=== PATIENT | male | born 1960 | race Caucasian/White ===

== ENCOUNTER 2019-03-04 00:20 | Outpatient (CLI) | payer OTHER | END 2019-03-04 00:21 | disposition critical access hospital (66) | LOC: EMS 00:20 | PROVIDERS: ATTEND Surgery | DX: S99.922A Unspecified injury of left foot, initial encounter (principal); R00.0 Tachycardia, unspecified; R73.09 Other abnormal glucose; W18.39XA Other fall on same level, initial encounter; Y92.59 Other trade areas as the place of occurrence of the external cause | CPT/HCPCS: A0425; A0427 ==

== ENCOUNTER 2019-03-04 00:48 | Inpatient (IN) | payer OTHER ==
[2019-03-04] MEDS ORDERED: INSULIN REGULAR HUMAN 100 UNIT/1 ML 10 ML MDV IVP STA (01:21)
[2019-03-04] MEDS ORDERED: SODIUM CHLORIDE 0.9% 1,000 ML IV ONE ×2 (01:21→03:46)
--- NOTE | 2019-03-04 01:23 | ED Physician Documentation ---
History of Present Illness - Stated complaint Stated Complaint: GLF - Chief complaint Chief Complaint: General - History obtained from History obtained from: Patient, EMS - History of Present Illness Timing: Today - Additonal information Additional information: 58-year-old diabetic male reports that he fell in his hotel room this morning at about 6 AM and was unable to get to the phone until this evening. He spent all of the time crawling back to the bed. He is brought to the hospital by medics who notes some swelling to the dorsum of his left foot and a heart rate of 157. The patient is a poor historian and appears dry and with altered mental status. Review of Systems Unable to obtain: Confused PD PAST MEDICAL HISTORY - Past Medical History Past Medical History: Yes Cardiovascular: Hypertension Respiratory: None Neuro: None Endocrine/Autoimmune: Type 2 diabetes GI: None : None HEENT: None Psych: None Musculoskeletal: Other Derm: None Other Past Medical History: LUPUS - Past Surgical History Past Surgical History: Yes - Present Medications Home Medications: Ambulatory Orders Medication Instructions Recorded Confirmed Colchicine 0.6 mg PO DAILY 03/04/19 03/04/19 Febuxostat 80 mg PO DAILY 03/04/19 03/04/19 Furosemide [Lasix] 80 mg PO DAILY 03/04/19 03/04/19 Insulin NPH Human Isophane 25 units SQ AC 03/04/19 03/04/19 [Humulin N Kwikpen] Losartan/Hydrochlorothiazide 1 tab PO DAILY 03/04/19 03/04/19 [Losartan-Hctz 100-25 mg Tab] Mycophenolate Mofetil 1,000 mg PO BID 03/04/19 03/04/19 Nifedipine [Nifedipine ER] 30 mg PO DAILY 03/04/19 03/04/19 carvediloL [Carvedilol] 25 mg PO BID 03/04/19 03/04/19 - Allergies Allergies/Adverse Reactions: Allergies Allergy/AdvReac Type Severity Reaction Status Date / Time No Known Drug Allergies Allergy Verified 03/04/19 01:22 - Social History Does the pt smoke?: No Smoking Status: Never smoker Does the pt drink ETOH?: No Does the pt have substance abuse?: No - Immunizations Immunizations are current?: No Immunizations: TDAP >10years/unknown - POLST Patient has POLST: No PD ED PE NORMAL - Vitals Vital signs reviewed: Yes (tachy and hypertensive ) - General General: Other (morbidly obese 58 y/o male with parched mucous membranes and diffuse skin changes with a foul odor answers questions with some delay in execution of motor commands. ) - HEENT HEENT: Atraumatic, PERRL, EOMI - Neck Neck: Supple, no meningeal sign - Cardiac Cardiac: No murmur, Other (tachy ) - Respiratory Respiratory: No respiratory distress, Clear bilaterally - Abdomen Abdomen: Soft, Non tender, Other (obese) - Back Back: No CVA TTP, No spinal TTP - Derm Derm: Normal color, Warm and dry, Other (There is inflamation to the skin there is an axillary abcess that is spontaneously draining in the right axilla and without tenderness or mass. ) - Extremities Extremities: No edema, Other (There is tenderness and swelling to the dorsum of the left foot. ) - Neuro Neuro: hay stacker 2-12 intact, No motor deficit, No sensory deficit, Other (speech is dysarthric secondary to dry mucous membranes ) Eye Opening: Spontaneous Motor: Obeys Commands Verbal: Oriented GCS Score: 15 - Psych Psych: Normal mood, Normal affect Results - Vitals Vitals: Vital Signs - 24 hr 03/04/19 03/04/19 03/04/19 00:40 01:00 02:00 Temperature 36.5 C Heart Rate 154 H 154 H 166 H Respiratory 22 18 28 H Rate Blood Pressure 114/92 H 129/90 H 100/71 O2 Saturation 97 92 93 03/04/19 03/04/19 03/04/19 02:30 02:46 02:50 Temperature Heart Rate 164 H 162 H 156 H Respiratory 20 20 20 Rate Blood Pressure 115/74 95/77 94/72 O2 Saturation 96 94 94 03/04/19 02:55 Temperature Heart Rate 108 H Respiratory 22 Rate Blood Pressure 108/78 O2 Saturation 92 Oxygen O2 Source Room air - EKG (time done) 0057 Rate: Rate (enter#) (156) Rhythm: LAE, Other (atrial tachycardia unifocal) Ischemia: Other (ST depression and lateral T wave inversion consistent with strain pattern. ) Compare to prior EKG: Old EKG unavailable Computer interpretation: Disagree with computer (I do not see R waves in V1 to consider posterior infarct. ) - Labs Labs: Laboratory Tests 03/04/19 03/04/19 03/04/19 01:25 01:25 01:25 WBC 12.8 H RBC 5.92 Hgb 17.4 Hct 57.3 H MCV 96.8 H MCH 29.4 MCHC 30.4 L RDW 15.4 H Plt Count 278 MPV 10.7 Neut # (Auto) 10.5 H Lymph # (Auto) 1.3 L [place] # (Auto) 0.8 Eos # (Auto) 0.0 Baso # (Auto) 0.1 Absolute Nucleated RBC 0.00 Nucleated RBC % 0.0 VBG pH VBG pCO2 VBG pO2 VBG HCO3 VBG Total CO2 VBG O2 Saturation VBG Base Excess Sodium 137 Potassium 5.1 H Chloride 85 L Carbon Dioxide 23 Anion Gap 29.0 H BUN 96 H* Creatinine 3.7 H Estimated GFR (MDRD) 17 L Glucose 1107 H* Lactic Acid 3.3 H* Calcium 9.0 Total Bilirubin 2.0 H AST 25 ALT 28 Alkaline Phosphatase 110 Total Protein 7.7 Albumin 3.7 Globulin 4.0 Albumin/Globulin Ratio 0.9 L Lipase 56 H Ethyl Alcohol < 5.0 Serum Ketones SMALL H 03/04/19 01:25 WBC RBC Hgb Hct MCV MCH MCHC RDW Plt Count MPV Neut # (Auto) Lymph # (Auto) [place] # (Auto) Eos # (Auto) Baso # (Auto) Absolute Nucleated RBC Nucleated RBC % VBG pH 7.454 H VBG pCO2 28.3 L VBG pO2 113.7 H VBG HCO3 19.4 L VBG Total CO2 20.3 L VBG O2 Saturation 98.2 H VBG Base Excess -2.6 L Sodium Potassium Chloride Carbon Dioxide Anion Gap BUN Creatinine Estimated GFR (MDRD) Glucose Lactic Acid Calcium Total Bilirubin AST ALT Alkaline Phosphatase Total Protein Albumin Globulin Albumin/Globulin Ratio Lipase Ethyl Alcohol Serum Ketones - Rads (name of study) chest Radiology: Prelim report reviewed (Impression: Normal single view chest), EMP read indepedently, See rad report Foot Radiology: Prelim report reviewed (Impression: Nondisplaced transverse fracture through the base of the third metatarsal at least. No other definitive fracture seen but CT may be useful for fractures and this Lisfranc region as often difficult to see.), EMP read indepedently, See rad report Procedures - Splint (location) left foot Splint applied by: Tech Type of splint: Fiberglass, Posterior Other: Patient tolerated well, No complications, Neurovascular intact, Good alignment PD MEDICAL DECISION MAKING - ED course Complexity details: reviewed results, re-evaluated patient, considered differential, d/w patient ED course: 58-year-old male visiting from [place] has type 2 diabetes and presents to the emergency department today with hyper glycemia and ketosis. He has markedly elevated glucose at over 1100 and a heart rate of 157. He is dehydrated and he is administered a liter of saline an insulin drip is started at 6 units per hour and a bolus of 10 units is given. He remains tachycardic despite the volume and he is administered IV cardiazem with conversion and a rate of 87. Dr. Ly is consulted in the case for admission and he graciously agrees to care for the patient in the hospital. The patient is able to provide more history as his hydration improves and he is able to tell me he was in a hospital in [facility] 3 months ago for LE cellulitis. He also indicates he had a stroke more than 10 years ago and recovered. - Critical Care Time(min): 40 Time Includes: Direct patient care, Review records, Reassess patient, Document care, Coordinate care, Medical consult Data interpretation: Labs, Pulse ox, ABG, CXR Procedures excluded from critical care time: EKG Departure - Departure Disposition: 66 [facility] DC/Xfer Clinical Impression: Diabetes mellitus with ketosis, Dehydration Altered mental status Qualifiers: Altered mental status type: disorientation Qualified Code(s): R41.0 - Disorientation, unspecified Foot fracture, left Qualifiers: Encounter type: initial encounter Fracture type: closed Qualified Code(s): S92.902A - Unspecified fracture of left foot, initial encounter for closed fracture Condition: Critical Discharge Date/Time: 03/04/19 04:55
[2019-03-04] MEDS: INSULIN REGULAR HUMAN 100 UNIT in SODIUM CHLORIDE 0.9% 100ML 99 ML IV STA (01:49)
[2019-03-04 01:54] LABS: VBG PCO2 28.3 mmHg (41-51); VBG PH 7.454 (7.31-7.41); VBG PO2 113.7 mmHg (25-47); VBG TOTAL CO2 20.3 mmol/L (24-29)
[2019-03-04 01:55] LABS: VBG BASE EXCESS -2.6 mmol/L (-2 - +2)
[2019-03-04 01:56] LABS: BASOPHILS # (AUTO) 0.1 10^3/uL (0.0-0.1); BASOPHILS % (AUTO) 0.4 %; EOSINOPHILS % (AUTO) 0.2 %; HGB - HEMOGLOBIN 17.4 g/dL (14.0-18.0); LYMPHOCYTES # (AUTO) 1.3 10^3/uL (1.5-3.5); LYMPHOCYTES % (AUTO) 10.5 %; MEAN CORPUSCULAR HEMOGLOBIN 29.4 pg (27.0-31.0); MEAN CORPUSCULAR HGB CONC 30.4 g/dL (32.0-36.0); MEAN CORPUSCULAR VOLUME 96.8 fL (80.0-94.0); MEAN PLATELET VOLUME 10.7 fL (7.4-11.4); MONOCYTES # (AUTO) 0.8 10^3/uL (0.0-1.0); MONOCYTES % (AUTO) 6.1 %; NEUTROPHILS # (AUTO) 10.5 10^3/uL (1.5-6.6); NEUTROPHILS % (AUTO) 81.9 %; PLT - PLATELET COUNT 278 10^3/uL (130-450); RED BLOOD COUNT 5.92 10^6/uL (4.70-6.10); RED CELL DISTRIBUTION WIDTH 15.4 % (12.0-15.0); WHITE BLOOD COUNT 12.8 x10^3/uL (4.8-10.8)
[2019-03-04 02:00] LABS: KETONES, SERUM (ACETEST) SMALL (NEGATIVE)
--- NOTE | 2019-03-04 02:09 | XRAY Report ---
Reason: chest pain Procedure Date: 03/04/2019 Accession Number: [id number] / [id number] Procedure: XR - Chest 1 View X-Ray CPT Code: 97093 Final Report FULL RESULT: EXAM: CHEST RADIOGRAPHY EXAM DATE: 03/04/2019 01:39 AM. CLINICAL HISTORY: Chest pain. COMPARISON: None. TECHNIQUE: 1 view. FINDINGS: Lungs/Pleura: No focal opacities evident. No pleural effusion. No pneumothorax. Mediastinum: Within exam limitations, the cardiomediastinal contour is normal. Other: None. IMPRESSION: Normal single view chest. RADIA
[2019-03-04 02:10] LABS: ALBUMIN 3.7 g/dL (3.2-5.5); ALBUMIN/GLOBULIN RATIO 0.9 (1.0-2.2); ALKALINE PHOSPHATASE 110 IU/L (42-121); ALT ALANINE AMINOTRANSFERASE 28 IU/L (10-60); AST ASPARTATE AMINOTRANSFERASE 25 IU/L (10-42); CARBON DIOXIDE - CO2 23 mmol/L (21-32); CHLORIDE 85 mmol/L (101-111); CREATININE 3.7 mg/dL (0.6-1.2); GFR - MDRD 17 (>89); LIPASE 56 U/L (22-51); SODIUM 137 mmol/L (135-145); TOTAL PROTEIN 7.7 g/dL (6.7-8.2)
[2019-03-04 02:12] LABS: BUN - BLOOD UREA NITROGEN 96 mg/dL (6-20)
[2019-03-04 02:13] LABS: GLUCOSE 1107 mg/dL (70-100)
--- NOTE | 2019-03-04 02:18 | XRAY Report ---
Reason: fall dorsal pain Procedure Date: 03/04/2019 Accession Number: [id number] / [id number] Procedure: XR - Foot 3 View LT CPT Code: Final Report FULL RESULT: EXAM: LEFT FOOT RADIOGRAPHY EXAM DATE: 03/04/2019 02:06 AM. CLINICAL HISTORY: Fall, dorsal pain. COMPARISON: None. TECHNIQUE: 3 views. FINDINGS: Bones: Nondisplaced transverse fracture through the base of the third metatarsal. No other definitive fracture seen in the foot. Joints: No definite malalignment. No significant arthritic changes. Soft Tissues: Swelling. IMPRESSION: Nondisplaced transverse fracture through the base of the third metatarsal at least. No other definitive fracture seen but CT may be useful for fractures in this Lisfranc region as often difficult to see. RADIA
[2019-03-04] MEDS ORDERED: diltiaZEM INJ 5 MG/ML VIAL IVP STA (02:40)
[2019-03-04] MEDS ORDERED: ONDANSETRON 4 MG/2 ML VIAL IVP PRN (03:41)
[2019-03-04] MEDS ORDERED: ACETAMINOPHEN 325 MG TABLET PO PRN (03:41)
[2019-03-04] MEDS ORDERED: SODIUM CHLORIDE 0.9% 1,000 ML IV SCH ×2 (04:00→05:12)
--- NOTE | 2019-03-04 04:10 | HISTORY & PHYSICAL EXAMINATION ---
Chief Complaint - Chief Complaint Chief Complaint: Fall History of Present Illness - Admitted From Admitted From:: Home - History Obtained From Records Reviewed: Yes History obtained from: Patient, ER Physician, EMR - History of Present Illness HPI Comment/Other: This is a 58-year-old male with a past medical history significant for type 2 diabetes, chronic kidney disease, lupus on mycophenolate, hypertension, gout who presents today after having a ground-level fall at home. He states he fell the evening of . He reports his left knee gave out and that he injured his left foot. His foot became painful and quite swollen. He had difficult time getting back to bed. He was eventually able to call EMS last night and when they arrived they noticed his left foot was swollen and he was tachycardic in the 150s. The patient states his blood sugar has been elevated these past few days and that the moderate has been reading "high." He states he has been taking his insulin at times but not consistently. He is not able to recall his dose and whether it is short or long-acting insulin. He is not sure why he has been able to take it consistently. He is complaining of increased urination and feeling very dehydrated. He is thirsty at this time. He reports no chest pain, dyspnea, fevers, chills. He reports no prior history of DKA. He is currently visiting from [facility] and has been here since beginning of the month by himself. He states his kidney function at baseline is functioning at approximately 30%. He has have a history of lupus for which he takes mycophenolate. He denies a history of cardiac problems including heart failure and arrhythmias. In the emergency department, he is found to be afebrile, tachycardic in the 150s, normotensive, tachypneic in the low 20s, saturating well on room air. His labs revealed a white count of 12.8 and hemoglobin of 17.4. His serum chemistry revealed a sodium of 137, potassium of 5.1, anion gap of 29, bicarbonate of 23. His BUN is elevated at 96 and Creatinine was 2.7. His glucose was 1107 and had an elevated lactic acid at 3.3. Serum ketones were small. VBG obtained showed a pH 7.45 and a PCO2 of 28.3. His chest x-ray was unremarkable. The x-ray of his left foot reveal a nondisplaced transverse fracture through the base of the third metatarsal. Given these findings, medicine was consulted for admission. I did discuss goals of care with the patient and he would like to be a full code. History - Past Medical History Cardiovascular: reports: Hypertension Respiratory: reports: None Neuro: reports: None Endocrine/Autoimmune: reports: Type 2 diabetes, Systemic lupus erythematosus GI: reports: None : reports: Renal insuffiency HEENT: reports: None Psych: reports: None Musculoskeletal: reports: Gout Derm: reports: None MRSA Hx?: No - Past Surgical History Other past surgical history: He states he has had surgery in the past but he cannot recall what it was at this time. - Family & Social History Family History Comment/Other: He reports a family history of diabetes and hypertension. He is unable to provide more history at the moment given his a ltered mental status. Living arrangement: At home Social History Notes: He lives in [facility] with his partner but he is visiting [facility] on his own. He has been here for 1 month now. He does visit here frequently. 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 He retired approximately 3 years ago. He reports no smoking or alcohol use. - POLST Patient has POLST: No Meds/Allgy - Home Medications Home Medications: Ambulatory Orders Medication Instructions Recorded Confirmed Colchicine 0.6 mg PO DAILY 03/04/19 03/04/19 Febuxostat 80 mg PO DAILY 03/04/19 03/04/19 Furosemide [Lasix] 80 mg PO DAILY 03/04/19 03/04/19 Insulin NPH Human Isophane 25 units SQ AC 03/04/19 03/04/19 [Humulin N Kwikpen] Losartan/Hydrochlorothiazide mg PO DAILY 03/04/19 [Losartan-Hctz 100-25 mg Tab] Mycophenolate Mofetil 1,000 mg PO BID 03/04/19 03/04/19 Nifedipine [Nifedipine ER] 30 mg PO DAILY 03/04/19 03/04/19 carvediloL [Carvedilol] 25 mg PO BID 03/04/19 03/04/19 - Allergies Allergies/Adverse Reactions: Allergies Allergy/AdvReac Type Severity Reaction Status Date / Time No Known Drug Allergies Allergy Verified 03/04/19 01:22 Review of Systems - Constitutional Constitutional: reports: Fatigue, Weakness. denies: Fever, Chills, Poor appetite - Cardiovascular Cariovascular: reports: Edema, Lightheadedness. denies: Chest pain, Exertional dyspnea, Decr. exercise tolerance - Respiratory Respiratory: denies: Cough, SOB at rest, SOB with exertion - Gastrointestinal Gastrointestinal: reports: Nausea. denies: Abdominal pain, Constipation, Diarrhea, Vomiting - Genitourinary Genitourinary: reports: Frequency. denies: Dysuria, Urgency - Musculoskeletal Musculoskeletal: reports: Joint swelling. denies: Muscle weakness - Integumentary Integumentary: denies: Rash - Neurological Neurological: reports: General weakness, Focal weakness, Dizziness, Numbness - Endocrine Endocrine: reports: Polyuria - All Other Systems All Other Systems: reports: Reviewed and negative Prior Level of Functionality: He is independent with ADLs. Exam - Vital Signs Reviewed Vital Signs: Yes Vital Signs: Vital Signs x48h Temp Pulse Resp BP Pulse Ox 03/04/19 03:44 89 30 H 113/85 H 95 03/04/19 02:55 108 H 22 108/78 92 03/04/19 02:50 156 H 20 94/72 94 03/04/19 02:46 162 H 20 95/77 94 03/04/19 02:30 164 H 20 115/74 96 03/04/19 02:00 166 H 28 H 100/71 93 03/04/19 01:00 154 H 18 129/90 H 92 03/04/19 00:40 36.5 C 154 H 22 114/92 H 97 - Physical Exam General Appearance: positive: Alert, Mild distress Eyes Bilateral: positive: Normal inspection, Conjunctivae nml ENT: positive: ENT inspection nml, Dry mucous membranes Neck: positive: Nml inspection Abdomen: positive: Non-tender, Other (Umbilical hernia noted.). negative: No distention, Tenderness, Guarding, Rebound Skin: positive: Warm, Dry Extremities: positive: No pedal edema, Other (There is not pitting edema over the dorsum of the left foot. Tender to palpation over the dorsum. No erythema.) Neurologic/Psychiatric: positive: Oriented x3, Other (No focal motor deficits.). negative: Disoriented to person, Disoriented to place, Disoriented to time, Slurred/abnml speech Conclusion/Plan - Problem List (1) Uncontrolled type 2 DM with hyperosmolar nonketotic hyperglycemia Conclusion/Plan: He presents with a blood glucose greater than 1000 and altered mental status. Although his anion gap is elevated, his bicarbonate is within normal range and his serum ketones are small. His pH is also 7.454. Suspect this is more of a hyperosmolar hyperglycemic state rather than diabetic ketoacidosis. Will continue aggressive IV hydration and start him on IV insulin. Check a serum osmolality. Check electrolytes every 4 hours. N.p.o. except for water. (2) Altered mental status Conclusion/Plan: He was initially quite disoriented and altered upon arrival to the ER but this has since improved. Suspect is likely multifactorial including his hyperglycemia and acute kidney injury causing uremia. Will hold off on CT of the head as he is improving and there are no focal deficits on exam. We will continue with IV hydration. Avoid medications which may cause delirium. Qualifiers: Altered mental status type: disorientation Qualified Code(s): R41.0 - Disorientation, unspecified (3) Increased anion gap metabolic acidosis Conclusion/Plan: This appears to be multifactorial including elevated lactic acid, uremia, and acute kidney injury. Do not suspect DKA is playing a role as his serum ketones are small and his bicarbonate is 23 although prior labs are not available to me and it is unclear what his baseline bicarbonate is. We will continue IV insulin for his hyperglycemia and continue IV hydration. Monitor his renal function. Repeat lactic acid. (4) Acute kidney injury superimposed on chronic kidney disease Conclusion/Plan: His BUN is elevated at 96 and his creatinine at 3.7. He does have baseline renal insufficiency but unclear what his baseline creatinine is. Suspect this injury is prerenal in nature as he appears quite dehydrated. We will continue with IV saline and monitoring renal function. We will obtain a urinalysis to rule out a potentially active sediment as he does have a history of lupus. Hold home Losartan and diuretics. (5) Fracture of metatarsal of left foot, closed Conclusion/Plan: Is a new diagnosis for him. Evident on the x-ray of the left foot. We will keep him nonweightbearing and keep leg elevated. Will use Tylenol as needed for pain control. No NSAIDs due to his renal function. Will apply ice as needed. Will ask orthopedics to evaluate the patient if he is still here on Wednesday when we have orthopedics available once again. Otherwise he will require outpatient follow-up. Qualifiers: Encounter type: initial encounter Metatarsal bone: third Fracture alignment: nondisplaced Qualified Code(s): S92.335A - Nondisplaced fracture of third metatarsal bone, left foot, initial encounter for closed fracture (6) Atrial flutter Conclusion/Plan: Reports no prior history of arrhythmias but his EKG in the ER appears to be atrial flutter. He did receive Cardizem IV with improvement in his heart rate and is now in sinus rhythm. Will trend troponin and monitor on telemetry. Obtain echocardiogram. (7) Hypernatremia Conclusion/Plan: His corrected sodium for his hyperglycemia is 153. We will continue with half normal saline given his hyperglycemia and evidence of dehydration. Will encourage free water intake. Monitor his sodium every 4 hours. (8) Lupus Conclusion/Plan: He is on mycophenolate 1000 mg twice a day. This may potentially be for a history of lupus nephritis although records are not available at this time. We will check a urinalysis to rule out an active sediment. Obtain outside records. Will likely resume mycophenolate once infection is ruled out. (9) Hypertension Conclusion/Plan: He is currently normotensive. He appears quite dated and we will hydrate him with IV saline. We will hold his home antihypertensives for the time being. (10) Gout Conclusion/Plan: He has a history of gout for which he takes colchicine and febuxostat. We will hold these at the moment. - Lab Results Lab results reviewed: Yes Fish Bones: 03/04/19 05:35 03/04/19 05:35 - Diagnostic Imaging Results Diagnostic Imaging Results: positive: Final report reviewed - EKG Results EKG Interpreted Independently: Yes EKG Comparison: No prior EKG EKG Findings: His EKG reveals atrial tachycardia with a rate of 126. This appears to be atrial flutter. There are T wave inversions in leads V4-V6. Core Measures - Anticipated LOS I expect patient to be DC'd or transferred within 96 hours.: Yes - Issues Hospital Issues and Management Plan: Admitted for diabetes with hyperglycemia concern for HHS. Also likely acute kidney injury on CKD. We will treat him with IV insulin and IV hydration. Rule out infection. - DVT/VTE - Prophylaxis VTE/DVT Device ordered at admit?: Yes VTE/DVT Prophylaxis med ordered at admit?: Yes
[2019-03-04] MEDS: INSULIN REGULAR HUMAN 100 UNIT in SODIUM CHLORIDE 0.9% 100ML 99 ML IV SCH ×2 (05:00→18:42)
[2019-03-04 05:47] LABS: BASOPHILS # (AUTO) 0.1 10^3/uL (0.0-0.1); BASOPHILS % (AUTO) 0.5 %; HGB - HEMOGLOBIN 17.8 g/dL (14.0-18.0); LYMPHOCYTES # (AUTO) 1.4 10^3/uL (1.5-3.5); LYMPHOCYTES % (AUTO) 10.2 %; MEAN CORPUSCULAR HEMOGLOBIN 28.9 pg (27.0-31.0); MEAN CORPUSCULAR HGB CONC 29.5 g/dL (32.0-36.0); MEAN PLATELET VOLUME 10.8 fL (7.4-11.4); MONOCYTES # (AUTO) 0.7 10^3/uL (0.0-1.0); NEUTROPHILS # (AUTO) 11.4 10^3/uL (1.5-6.6); PLT - PLATELET COUNT 270 10^3/uL (130-450); RED BLOOD COUNT 6.15 10^6/uL (4.70-6.10); RED CELL DISTRIBUTION WIDTH 16.1 % (12.0-15.0); WHITE BLOOD COUNT 13.8 x10^3/uL (4.8-10.8)
[2019-03-04 05:54] LABS: MUDS CUTOFF CONCENTRATIONS CUTOFF CONC BELOW:
[2019-03-04 05:57] LABS: GLUCOSE, URINE (UA) >=1000 mg/dL (NEGATIVE); KETONES,URINE (UA) 15 mg/dL (NEGATIVE); LEUKOCYTE ESTERASE, URINE NEGATIVE (NEGATIVE); NITRITE,URINE NEGATIVE (NEGATIVE); OCCULT BLOOD,URINE NEGATIVE (NEGATIVE); PH,URINE 5.5 PH (5.0-7.5); PROTEIN,URINE NEGATIVE (NEGATIVE); UROBILINOGEN,URINE 0.2 (NORMAL) E.U./dL (NORMAL)
[2019-03-04 06:00] LABS: CLARITY,URINE CLEAR (CLEAR)
[2019-03-04] MEDS: SODIUM CHLORIDE 0.45% 1,000 ML IV SCH ×4 (06:00→22:15)
[2019-03-04 06:01] LABS: BILIRUBIN,URINE NEGATIVE (NEGATIVE); ICTOTEST,URINE NEGATIVE
[2019-03-04 06:04] LABS: CREATININE 3.8 mg/dL (0.6-1.2); MAGNESIUM 3.8 mg/dL (1.7-2.8); PHOSPHORUS 6.2 mg/dL (2.5-4.6)
[2019-03-04 06:07] LABS: AMPHETAMINE SCREEN,URINE NEGATIVE (NEGATIVE); BENZODIAZEPINES SCREEN, URINE NEGATIVE (NEGATIVE); COCAINE SCREEN URINE NEGATIVE (NEGATIVE); METHADONE SCREEN, URINE NEGATIVE (NEGATIVE); METHAMPHETAMINES SCREEN, URINE NEGATIVE (NEGATIVE); OPIATE SCREEN, URINE NEGATIVE (NEGATIVE); OXYCODONE SCREEN, URINE NEGATIVE (NEGATIVE); PROPOXYPHENE SCREEN, URINE NEGATIVE (NEGATIVE); TRICYCLIC ANTIDEPRESSANT,URINE NEGATIVE (NEGATIVE)
--- NOTE | 2019-03-04 09:48 | ANESTHESIA PROCEDURE NOTE ---
Anesth Central Line Template - Central Line Central Line Preparation: Consent Obtained, Time out completed, Ultrasound used, Sterile prep and drape Central line location: Right IJ Central line type: Triple lumen Central line catheter tip site resides: Superior vena cava (SVC) Central line aftercare: Chlorhexidine disc placed, Secured (sutured), Placement confirmed, No complications, Bundle checklist complete, Pt tolerated well
[2019-03-04 09:53] LABS: CALCIUM 8.5 mg/dL (8.5-10.3); CREATININE 3.3 mg/dL (0.6-1.2); MAGNESIUM 3.8 mg/dL (1.7-2.8); PHOSPHORUS 3.4 mg/dL (2.5-4.6)
[2019-03-04 09:56] LABS: HB2 TOTAL 16.6 g/dL; HEMOGLOBIN A1C 2.63 g/dL; HEMOGLOBIN A1C % 16.6 % (4.6-6.2)
[2019-03-04] MEDS: SODIUM CHLORIDE FLUSH 0.9% 10 ML SYRINGE IVP SCH ×2 (10:11→18:09)
--- NOTE | 2019-03-04 10:18 | XRAY Report ---
Reason: right subclavian line placement Procedure Date: 03/04/2019 Accession Number: [id number] / [id number] Procedure: XR - Chest for Line Placement CPT Code: Final Report FULL RESULT: EXAM: CHEST RADIOGRAPHY EXAM DATE: 03/04/2019 09:52 AM. CLINICAL HISTORY: Right subclavian line placement. COMPARISON: CHEST 1 VIEW 03/04/2019 1:39 AM. TECHNIQUE: 1 view. FINDINGS: Lungs/Pleura: Lung volumes remain low. Linear basilar opacities unchanged likely reflecting atelectasis. No new consolidation. No pneumothorax. Mediastinum: Stable heart size and mediastinum. Other: Right central venous catheter terminates in the mid SVC. IMPRESSION: 1. Expected position of right central venous catheter terminating in the mid SVC. 2. No evidence for pneumothorax.. RADIA
[2019-03-04] MEDS: HEPARIN 5,000 UNIT/ML VIAL SUBQ SCH ×2 (10:37→21:16)
[2019-03-04 13:23] LABS: CALCIUM 8.2 mg/dL (8.5-10.3); CREATININE 3.4 mg/dL (0.6-1.2); MAGNESIUM 3.1 mg/dL (1.7-2.8); PHOSPHORUS 3.3 mg/dL (2.5-4.6)
[2019-03-04] MEDS ORDERED: diltiaZEM INJ 5 MG/ML VIAL IVP ONE (14:13)
--- NOTE | 2019-03-04 15:27 | PROVIDER PROGRESS NOTE ---
Subjective - Prog Note Date Prog Note Date: 03/04/19 Prog Note Time: 15:22 - Subjective Subjective: he has been lethargic and intermittently confused during the day. But he knows where he is, he knows why he is here. Central line has been placed. Sugar is gradually coming down. He has gone into atrial fibrillation twice now. In the emergency room he responded to Cardizem IV push. Here he has responded but then gone back up again and his rate and irregularity. We received some records from [facility] in [facility]. He was hospitalized November 07, 2018 through November 12, 2018 for a back abscess. He was treated with vancomycin. At that time creatinine was 1.45. He had cellulitis of the right chest wall, and the other diagnoses were systemic lupus, type 2 diabetes mellitus, hypertension, CKD stage III, gout, morbid obesity, and obstructive sleep apnea. He states that he does not use a sleep mask. Objective - Vital Signs/Intake & Output Reviewed Vital Signs: Yes Vital Signs: Vital Signs Temp Pulse Resp BP BP Pulse Ox 03/04/19 15:15 137 H 19 105/76 95 03/04/19 15:00 135 H 25 H 106/76 95 03/04/19 14:48 129 H 23 117/81 H 95 03/04/19 14:30 116 H 22 113/87 H 03/04/19 14:25 116 H 22 114/85 H 03/04/19 14:20 109 H 25 H 113/70 03/04/19 14:18 126/91 H 03/04/19 14:15 126 H 15 126/91 H 03/04/19 14:07 156 H 18 125/102 H 03/04/19 14:00 81 10 L 126/60 98 03/04/19 13:00 36.2 C L 80 12 117/77 96 03/04/19 12:00 69 12 128/89 H 95 Intake & Output: Intake & Output 03/01/19 03/02/19 03/03/19 03/04/19 23:59 23:59 23:59 23:59 Intake Total 5101.616 Output Total 1250 Balance 3851.616 - Objective General Appearance: positive: No acute distress, Lethargic Eyes Bilateral: positive: PERRL ENT: positive: Dry mucous membranes Neck: positive: No JVD Respiratory: positive: Chest non-tender. negative: Wheezes, Rales, Rhonchi Cardiovascular: positive: Regular rate & rhythm. negative: Gallop/S4, Friction rub Abdomen: positive: Non-tender, No organomegaly, Nml bowel sounds, No distention Skin: positive: Other (right axillla has various SQ nodules, skin w redness and heat that is not contiguous, some nodules are draining pus) Extremities: positive: Non-tender, Pedal edema Neurologic/Psychiatric: positive: CN's nml (2-12), Motor nml, Disoriented to place, Disoriented to time, Slurred/abnml speech (at times) - Lab Results Fish Bones: 03/05/19 04:17 03/05/19 04:17 Other Labs: Lab Results x24hrs 03/04/19 03/04/19 03/04/19 Range/Units 14:10 12:59 12:08 WBC (4.8-10.8) x10^3/uL RBC (4.70-6.10) 10^6/uL Hgb (14.0-18.0) g/dL Hct (42.0-52.0) % MCV (80.0-94.0) fL MCH (27.0-31.0) pg MCHC (32.0-36.0) g/dL RDW (12.0-15.0) % Plt Count (130-450) 10^3/uL MPV (7.4-11.4) fL Neut # (Auto) (1.5-6.6) 10^3/uL Lymph # (Auto) (1.5-3.5) 10^3/uL [place] # (Auto) (0.0-1.0) 10^3/uL Eos # (Auto) (0.0-0.7) 10^3/uL Baso # (Auto) (0.0-0.1) 10^3/uL Absolute Nucleated RBC x10^3/uL Nucleated RBC % /100WBC VBG pH (7.31-7.41) VBG pCO2 (41-51) mmHg VBG pO2 (25-47) mmHg VBG HCO3 (23-28) mmol/L VBG Total CO2 (24-29) mmol/L VBG O2 Saturation (60-80) % VBG Base Excess (-2 - +2) mmol/L Sodium 135 (135-145) mmol/L Potassium 3.6 (3.5-5.0) mmol/L Chloride 89 L (101-111) mmol/L Carbon Dioxide 30 (21-32) mmol/L Anion Gap 16.0 H (6-13) BUN 91 H* (6-20) mg/dL Creatinine 3.4 H (0.6-1.2) mg/dL Estimated GFR (MDRD) 19 L (>89) Glucose 683 H* 690 H* 698 H* (70-100) mg/dL Glycated Hemoglobin (4.6-6.2) % Estim Average Glucose (70-100) Lactic Acid (0.5-2.2) mmol/L Calcium 8.2 L (8.5-10.3) mg/dL Phosphorus 3.3 (2.5-4.6) mg/dL Magnesium 3.1 H (1.7-2.8) mg/dL Total Bilirubin (0.2-1.0) mg/dL AST (10-42) IU/L ALT (10-60) IU/L Alkaline Phosphatase (42-121) IU/L Troponin I High Sens (2.3-19.7) ng/L Total Protein (6.7-8.2) g/dL Albumin (3.2-5.5) g/dL Globulin (2.1-4.2) g/dL Albumin/Globulin Ratio (1.0-2.2) Lipase (22-51) U/L Urine Color Urine Clarity (CLEAR) Urine pH (5.0-7.5) PH Ur Specific [place] (1.002-1.030) Urine Protein (NEGATIVE) mg/dL Urine Glucose (UA) (NEGATIVE) mg/dL Urine Ketones (NEGATIVE) mg/dL Urine Occult Blood (NEGATIVE) Urine Nitrite (NEGATIVE) Urine Bilirubin (NEGATIVE) Urine Urobilinogen (NORMAL) E.U./dL Ur Leukocyte Esterase (NEGATIVE) Ur Microscopic Review Urine Culture Comments Nasal Screen MRSA (PCR) (NEGATIVE) Urine Opiates Screen (NEGATIVE) Ur Oxycodone Screen (NEGATIVE) Urine Methadone Screen (NEGATIVE) Ur Propoxyphene Screen (NEGATIVE) Ur Barbiturates Screen (NEGATIVE) Ur Tricyclics Screen (NEGATIVE) Ur Phencyclidine Scrn (NEGATIVE) Ur Amphetamine Screen (NEGATIVE) U Methamphetamines Scrn (NEGATIVE) U Benzodiazepines Scrn (NEGATIVE) Urine Cocaine Screen (NEGATIVE) U Cannabinoids Screen (NEGATIVE) Ethyl Alcohol mg/dL Serum Ketones (NEGATIVE) 03/04/19 03/04/19 03/04/19 Range/Units 11:06 09:30 09:30 WBC (4.8-10.8) x10^3/uL RBC (4.70-6.10) 10^6/uL Hgb (14.0-18.0) g/dL Hct (42.0-52.0) % MCV (80.0-94.0) fL MCH (27.0-31.0) pg MCHC (32.0-36.0) g/dL RDW (12.0-15.0) % Plt Count (130-450) 10^3/uL MPV (7.4-11.4) fL Neut # (Auto) (1.5-6.6) 10^3/uL Lymph # (Auto) (1.5-3.5) 10^3/uL [place] # (Auto) (0.0-1.0) 10^3/uL Eos # (Auto) (0.0-0.7) 10^3/uL Baso # (Auto) (0.0-0.1) 10^3/uL Absolute Nucleated RBC x10^3/uL Nucleated RBC % /100WBC VBG pH (7.31-7.41) VBG pCO2 (41-51) mmHg VBG pO2 (25-47) mmHg VBG HCO3 (23-28) mmol/L VBG Total CO2 (24-29) mmol/L VBG O2 Saturation (60-80) % VBG Base Excess (-2 - +2) mmol/L Sodium 140 (135-145) mmol/L Potassium 3.6 (3.5-5.0) mmol/L Chloride 92 L (101-111) mmol/L Carbon Dioxide 32 (21-32) mmol/L Anion Gap 16.0 H (6-13) BUN 95 H* (6-20) mg/dL Creatinine 3.3 H (0.6-1.2) mg/dL Estimated GFR (MDRD) 19 L (>89) Glucose 702 H* 808 H* (70-100) mg/dL Glycated Hemoglobin (4.6-6.2) % Estim Average Glucose (70-100) Lactic Acid 2.6 H (0.5-2.2) mmol/L Calcium 8.5 (8.5-10.3) mg/dL Phosphorus 3.4 (2.5-4.6) mg/dL Magnesium 3.8 H (1.7-2.8) mg/dL Total Bilirubin (0.2-1.0) mg/dL AST (10-42) IU/L ALT (10-60) IU/L Alkaline Phosphatase (42-121) IU/L Troponin I High Sens (2.3-19.7) ng/L Total Protein (6.7-8.2) g/dL Albumin (3.2-5.5) g/dL Globulin (2.1-4.2) g/dL Albumin/Globulin Ratio (1.0-2.2) Lipase (22-51) U/L Urine Color Urine Clarity (CLEAR) Urine pH (5.0-7.5) PH Ur Specific [place] (1.002-1.030) Urine Protein (NEGATIVE) mg/dL Urine Glucose (UA) (NEGATIVE) mg/dL Urine Ketones (NEGATIVE) mg/dL Urine Occult Blood (NEGATIVE) Urine Nitrite (NEGATIVE) Urine Bilirubin (NEGATIVE) Urine Urobilinogen (NORMAL) E.U./dL Ur Leukocyte Esterase (NEGATIVE) Ur Microscopic Review Urine Culture Comments Nasal Screen MRSA (PCR) (NEGATIVE) Urine Opiates Screen (NEGATIVE) Ur Oxycodone Screen (NEGATIVE) Urine Methadone Screen (NEGATIVE) Ur Propoxyphene Screen (NEGATIVE) Ur Barbiturates Screen (NEGATIVE) Ur Tricyclics Screen (NEGATIVE) Ur Phencyclidine Scrn (NEGATIVE) Ur Amphetamine Screen (NEGATIVE) U Methamphetamines Scrn (NEGATIVE) U Benzodiazepines Scrn (NEGATIVE) Urine Cocaine Screen (NEGATIVE) U Cannabinoids Screen (NEGATIVE) Ethyl Alcohol mg/dL Serum Ketones (NEGATIVE) 03/04/19 03/04/19 03/04/19 Range/Units 09:30 06:35 05:45 WBC (4.8-10.8) x10^3/uL RBC (4.70-6.10) 10^6/uL Hgb (14.0-18.0) g/dL Hct (42.0-52.0) % MCV (80.0-94.0) fL MCH (27.0-31.0) pg MCHC (32.0-36.0) g/dL RDW (12.0-15.0) % Plt Count (130-450) 10^3/uL MPV (7.4-11.4) fL Neut # (Auto) (1.5-6.6) 10^3/uL Lymph # (Auto) (1.5-3.5) 10^3/uL [place] # (Auto) (0.0-1.0) 10^3/uL Eos # (Auto) (0.0-0.7) 10^3/uL Baso # (Auto) (0.0-0.1) 10^3/uL Absolute Nucleated RBC x10^3/uL Nucleated RBC % /100WBC VBG pH (7.31-7.41) VBG pCO2 (41-51) mmHg VBG pO2 (25-47) mmHg VBG HCO3 (23-28) mmol/L VBG Total CO2 (24-29) mmol/L VBG O2 Saturation (60-80) % VBG Base Excess (-2 - +2) mmol/L Sodium (135-145) mmol/L Potassium (3.5-5.0) mmol/L Chloride (101-111) mmol/L Carbon Dioxide (21-32) mmol/L Anion Gap (6-13) BUN (6-20) mg/dL Creatinine (0.6-1.2) mg/dL Estimated GFR (MDRD) (>89) Glucose 974 H* (70-100) mg/dL Glycated Hemoglobin 16.6 H (4.6-6.2) % Estim Average Glucose 430 H (70-100) Lactic Acid (0.5-2.2) mmol/L Calcium (8.5-10.3) mg/dL Phosphorus (2.5-4.6) mg/dL Magnesium (1.7-2.8) mg/dL Total Bilirubin (0.2-1.0) mg/dL AST (10-42) IU/L ALT (10-60) IU/L Alkaline Phosphatase (42-121) IU/L Troponin I High Sens (2.3-19.7) ng/L Total Protein (6.7-8.2) g/dL Albumin (3.2-5.5) g/dL Globulin (2.1-4.2) g/dL Albumin/Globulin Ratio (1.0-2.2) Lipase (22-51) U/L Urine Color YELLOW Urine Clarity CLEAR (CLEAR) Urine pH 5.5 (5.0-7.5) PH Ur Specific [place] 1.010 (1.002-1.030) Urine Protein NEGATIVE (NEGATIVE) mg/dL Urine Glucose (UA) >=1000 H (NEGATIVE) mg/dL Urine Ketones 15 H (NEGATIVE) mg/dL Urine Occult Blood NEGATIVE (NEGATIVE) Urine Nitrite NEGATIVE (NEGATIVE) Urine Bilirubin NEGATIVE (NEGATIVE) Urine Urobilinogen 0.2 (NORMAL) (NORMAL) E.U./dL Ur Leukocyte Esterase NEGATIVE (NEGATIVE) Ur Microscopic Review NOT INDICATED Urine Culture Comments NOT INDICATED Nasal Screen MRSA (PCR) (NEGATIVE) Urine Opiates Screen NEGATIVE (NEGATIVE) Ur Oxycodone Screen NEGATIVE (NEGATIVE) Urine Methadone Screen NEGATIVE (NEGATIVE) Ur Propoxyphene Screen NEGATIVE (NEGATIVE) Ur Barbiturates Screen NEGATIVE (NEGATIVE) Ur Tricyclics Screen NEGATIVE (NEGATIVE) Ur Phencyclidine Scrn NEGATIVE (NEGATIVE) Ur Amphetamine Screen NEGATIVE (NEGATIVE) U Methamphetamines Scrn NEGATIVE (NEGATIVE) U Benzodiazepines Scrn NEGATIVE (NEGATIVE) Urine Cocaine Screen NEGATIVE (NEGATIVE) U Cannabinoids Screen NEGATIVE (NEGATIVE) Ethyl Alcohol mg/dL Serum Ketones (NEGATIVE) 03/04/19 03/04/19 03/04/19 Range/Units 05:35 05:35 05:35 WBC 13.8 H (4.8-10.8) x10^3/uL RBC 6.15 H (4.70-6.10) 10^6/uL Hgb 17.8 (14.0-18.0) g/dL Hct 60.3 H (42.0-52.0) % MCV 98.0 H (80.0-94.0) fL MCH 28.9 (27.0-31.0) pg MCHC 29.5 L (32.0-36.0) g/dL RDW 16.1 H (12.0-15.0) % Plt Count 270 (130-450) 10^3/uL MPV 10.8 (7.4-11.4) fL Neut # (Auto) 11.4 H (1.5-6.6) 10^3/uL Lymph # (Auto) 1.4 L (1.5-3.5) 10^3/uL [place] # (Auto) 0.7 (0.0-1.0) 10^3/uL Eos # (Auto) 0.0 (0.0-0.7) 10^3/uL Baso # (Auto) 0.1 (0.0-0.1) 10^3/uL Absolute Nucleated RBC 0.00 x10^3/uL Nucleated RBC % 0.0 /100WBC VBG pH (7.31-7.41) VBG pCO2 (41-51) mmHg VBG pO2 (25-47) mmHg VBG HCO3 (23-28) mmol/L VBG Total CO2 (24-29) mmol/L VBG O2 Saturation (60-80) % VBG Base Excess (-2 - +2) mmol/L Sodium 138 (135-145) mmol/L Potassium 4.3 (3.5-5.0) mmol/L Chloride 88 L (101-111) mmol/L Carbon Dioxide 23 (21-32) mmol/L Anion Gap 27.0 H (6-13) BUN 99 H* (6-20) mg/dL Creatinine 3.8 H (0.6-1.2) mg/dL Estimated GFR (MDRD) 16 L (>89) Glucose 1098 H* (70-100) mg/dL Glycated Hemoglobin (4.6-6.2) % Estim Average Glucose (70-100) Lactic Acid 3.1 H* (0.5-2.2) mmol/L Calcium 9.0 (8.5-10.3) mg/dL Phosphorus 6.2 H (2.5-4.6) mg/dL Magnesium 3.8 H (1.7-2.8) mg/dL Total Bilirubin (0.2-1.0) mg/dL AST (10-42) IU/L ALT (10-60) IU/L Alkaline Phosphatase (42-121) IU/L Troponin I High Sens (2.3-19.7) ng/L Total Protein (6.7-8.2) g/dL Albumin (3.2-5.5) g/dL Globulin (2.1-4.2) g/dL Albumin/Globulin Ratio (1.0-2.2) Lipase (22-51) U/L Urine Color Urine Clarity (CLEAR) Urine pH (5.0-7.5) PH Ur Specific [place] (1.002-1.030) Urine Protein (NEGATIVE) mg/dL Urine Glucose (UA) (NEGATIVE) mg/dL Urine Ketones (NEGATIVE) mg/dL Urine Occult Blood (NEGATIVE) Urine Nitrite (NEGATIVE) Urine Bilirubin (NEGATIVE) Urine Urobilinogen (NORMAL) E.U./dL Ur Leukocyte Esterase (NEGATIVE) Ur Microscopic Review Urine Culture Comments Nasal Screen MRSA (PCR) (NEGATIVE) Urine Opiates Screen (NEGATIVE) Ur Oxycodone Screen (NEGATIVE) Urine Methadone Screen (NEGATIVE) Ur Propoxyphene Screen (NEGATIVE) Ur Barbiturates Screen (NEGATIVE) Ur Tricyclics Screen (NEGATIVE) Ur Phencyclidine Scrn (NEGATIVE) Ur Amphetamine Screen (NEGATIVE) U Methamphetamines Scrn (NEGATIVE) U Benzodiazepines Scrn (NEGATIVE) Urine Cocaine Screen (NEGATIVE) U Cannabinoids Screen (NEGATIVE) Ethyl Alcohol mg/dL Serum Ketones (NEGATIVE) 03/04/19 03/04/19 03/04/19 Range/Units 05:35 05:30 01:25 WBC (4.8-10.8) x10^3/uL RBC (4.70-6.10) 10^6/uL Hgb (14.0-18.0) g/dL Hct (42.0-52.0) % MCV (80.0-94.0) fL MCH (27.0-31.0) pg MCHC (32.0-36.0) g/dL RDW (12.0-15.0) % Plt Count (130-450) 10^3/uL MPV (7.4-11.4) fL Neut # (Auto) (1.5-6.6) 10^3/uL Lymph # (Auto) (1.5-3.5) 10^3/uL [place] # (Auto) (0.0-1.0) 10^3/uL Eos # (Auto) (0.0-0.7) 10^3/uL Baso # (Auto) (0.0-0.1) 10^3/uL Absolute Nucleated RBC x10^3/uL Nucleated RBC % /100WBC VBG pH 7.454 H (7.31-7.41) VBG pCO2 28.3 L (41-51) mmHg VBG pO2 113.7 H (25-47) mmHg VBG HCO3 19.4 L (23-28) mmol/L VBG Total CO2 20.3 L (24-29) mmol/L VBG O2 Saturation 98.2 H (60-80) % VBG Base Excess -2.6 L (-2 - +2) mmol/L Sodium (135-145) mmol/L Potassium (3.5-5.0) mmol/L Chloride (101-111) mmol/L Carbon Dioxide (21-32) mmol/L Anion Gap (6-13) BUN (6-20) mg/dL Creatinine (0.6-1.2) mg/dL Estimated GFR (MDRD) (>89) Glucose (70-100) mg/dL Glycated Hemoglobin (4.6-6.2) % Estim Average Glucose (70-100) Lactic Acid (0.5-2.2) mmol/L Calcium (8.5-10.3) mg/dL Phosphorus (2.5-4.6) mg/dL Magnesium (1.7-2.8) mg/dL Total Bilirubin (0.2-1.0) mg/dL AST (10-42) IU/L ALT (10-60) IU/L Alkaline Phosphatase (42-121) IU/L Troponin I High Sens 14.1 (2.3-19.7) ng/L Total Protein (6.7-8.2) g/dL Albumin (3.2-5.5) g/dL Globulin (2.1-4.2) g/dL Albumin/Globulin Ratio (1.0-2.2) Lipase (22-51) U/L Urine Color Urine Clarity (CLEAR) Urine pH (5.0-7.5) PH Ur Specific [place] (1.002-1.030) Urine Protein (NEGATIVE) mg/dL Urine Glucose (UA) (NEGATIVE) mg/dL Urine Ketones (NEGATIVE) mg/dL Urine Occult Blood (NEGATIVE) Urine Nitrite (NEGATIVE) Urine Bilirubin (NEGATIVE) Urine Urobilinogen (NORMAL) E.U./dL Ur Leukocyte Esterase (NEGATIVE) Ur Microscopic Review Urine Culture Comments Nasal Screen MRSA (PCR) NEGATIVE (NEGATIVE) Urine Opiates Screen (NEGATIVE) Ur Oxycodone Screen (NEGATIVE) Urine Methadone Screen (NEGATIVE) Ur Propoxyphene Screen (NEGATIVE) Ur Barbiturates Screen (NEGATIVE) Ur Tricyclics Screen (NEGATIVE) Ur Phencyclidine Scrn (NEGATIVE) Ur Amphetamine Screen (NEGATIVE) U Methamphetamines Scrn (NEGATIVE) U Benzodiazepines Scrn (NEGATIVE) Urine Cocaine Screen (NEGATIVE) U Cannabinoids Screen (NEGATIVE) Ethyl Alcohol mg/dL Serum Ketones (NEGATIVE) 03/04/19 03/04/19 03/04/19 Range/Units 01:25 01:25 01:25 WBC 12.8 H (4.8-10.8) x10^3/uL RBC 5.92 (4.70-6.10) 10^6/uL Hgb 17.4 (14.0-18.0) g/dL Hct 57.3 H (42.0-52.0) % MCV 96.8 H (80.0-94.0) fL MCH 29.4 (27.0-31.0) pg MCHC 30.4 L (32.0-36.0) g/dL RDW 15.4 H (12.0-15.0) % Plt Count 278 (130-450) 10^3/uL MPV 10.7 (7.4-11.4) fL Neut # (Auto) 10.5 H (1.5-6.6) 10^3/uL Lymph # (Auto) 1.3 L (1.5-3.5) 10^3/uL [place] # (Auto) 0.8 (0.0-1.0) 10^3/uL Eos # (Auto) 0.0 (0.0-0.7) 10^3/uL Baso # (Auto) 0.1 (0.0-0.1) 10^3/uL Absolute Nucleated RBC 0.00 x10^3/uL Nucleated RBC % 0.0 /100WBC VBG pH (7.31-7.41) VBG pCO2 (41-51) mmHg VBG pO2 (25-47) mmHg VBG HCO3 (23-28) mmol/L VBG Total CO2 (24-29) mmol/L VBG O2 Saturation (60-80) % VBG Base Excess (-2 - +2) mmol/L Sodium 137 (135-145) mmol/L Potassium 5.1 H (3.5-5.0) mmol/L Chloride 85 L (101-111) mmol/L Carbon Dioxide 23 (21-32) mmol/L Anion Gap 29.0 H (6-13) BUN 96 H* (6-20) mg/dL Creatinine 3.7 H (0.6-1.2) mg/dL Estimated GFR (MDRD) 17 L (>89) Glucose 1107 H* (70-100) mg/dL Glycated Hemoglobin (4.6-6.2) % Estim Average Glucose (70-100) Lactic Acid 3.3 H* (0.5-2.2) mmol/L Calcium 9.0 (8.5-10.3) mg/dL Phosphorus (2.5-4.6) mg/dL Magnesium (1.7-2.8) mg/dL Total Bilirubin 2.0 H (0.2-1.0) mg/dL AST 25 (10-42) IU/L ALT 28 (10-60) IU/L Alkaline Phosphatase 110 (42-121) IU/L Troponin I High Sens (2.3-19.7) ng/L Total Protein 7.7 (6.7-8.2) g/dL Albumin 3.7 (3.2-5.5) g/dL Globulin 4.0 (2.1-4.2) g/dL Albumin/Globulin Ratio 0.9 L (1.0-2.2) Lipase 56 H (22-51) U/L Urine Color Urine Clarity (CLEAR) Urine pH (5.0-7.5) PH Ur Specific [place] (1.002-1.030) Urine Protein (NEGATIVE) mg/dL Urine Glucose (UA) (NEGATIVE) mg/dL Urine Ketones (NEGATIVE) mg/dL Urine Occult Blood (NEGATIVE) Urine Nitrite (NEGATIVE) Urine Bilirubin (NEGATIVE) Urine Urobilinogen (NORMAL) E.U./dL Ur Leukocyte Esterase (NEGATIVE) Ur Microscopic Review Urine Culture Comments Nasal Screen MRSA (PCR) (NEGATIVE) Urine Opiates Screen (NEGATIVE) Ur Oxycodone Screen (NEGATIVE) Urine Methadone Screen (NEGATIVE) Ur Propoxyphene Screen (NEGATIVE) Ur Barbiturates Screen (NEGATIVE) Ur Tricyclics Screen (NEGATIVE) Ur Phencyclidine Scrn (NEGATIVE) Ur Amphetamine Screen (NEGATIVE) U Methamphetamines Scrn (NEGATIVE) U Benzodiazepines Scrn (NEGATIVE) Urine Cocaine Screen (NEGATIVE) U Cannabinoids Screen (NEGATIVE) Ethyl Alcohol < 5.0 mg/dL Serum Ketones SMALL H (NEGATIVE) Assessment/Plan - Problem List (1) Hyperosmolar non-ketotic state in patient with type 2 diabetes mellitus Impression: continue high IVF rate, insulin drip protocol until goal met continue to watch K, Phos, Mg and supplement as needed (2) Acute kidney injury superimposed on chronic kidney disease Impression: his previous labs from 11/2018 show a creat of 1.45 so he already has CKD. Creat has slowly responded by dropping. Will continue to monitor and hope he returns to baseline. (3) Furuncle of axillary fold Impression: with cellulitis. Plan: check US for abcess start linezolid not vancomycin since his creat is high. (4) Hypertension Impression: usual medications still being held since his blood pressure is low. Qualifiers: Hypertension type: essential hypertension Qualified Code(s): I10 - Essential (primary) hypertension (5) Fracture of metatarsal of left foot, closed Impression: if he is still here 03/06, will see if we have ortho on premises to see him. Qualifiers: Encounter type: initial encounter Metatarsal bone: third Fracture alignment: nondisplaced Qualified Code(s): S92.335A - Nondisplaced fracture of third metatarsal bone, left foot, initial encounter for closed fracture
[2019-03-04] MEDS: LINEZOLID 600 MG/300 ML 600 MG/300 ML BAG IV SCH (15:32)
[2019-03-04] MEDS: diltiaZEM INJ 125 MG in DEXTROSE 5% 100 ML IV SCH (15:35)
[2019-03-04 17:24] LABS: CALCIUM 8.2 mg/dL (8.5-10.3)
[2019-03-04] MEDS: POTASSIUM CHLOR 20 MEQ/100 ML 20 MEQ/100 ML BAG IV SCH ×4 (18:09→21:19)
[2019-03-04 18:31] LABS: CALCIUM 8.4 mg/dL (8.5-10.3)
[2019-03-04] MEDS: NEUTRA-PHOS 250 MG TABLET PO SCH ×2 (18:50→21:16)
--- NOTE | 2019-03-04 20:13 | Ultrasound Report ---
Reason: draining pustules Procedure Date: 03/04/2019 Accession Number: [id number] / [id number] Procedure: US - Axilla CPT Code: Final Report FULL RESULT: EXAM: RIGHT UPPER EXTREMITY ULTRASOUND - LIMITED EXAM DATE: 03/04/2019 06:01 PM. CLINICAL HISTORY: Draining axillary pustules. Swelling and redness. COMPARISON: None. TECHNIQUE: Real-time scanning was performed with static images obtained. FINDINGS: 2 irregular lobular marginated hypoechoic abnormalities with hyperechoic center in the right axilla, one more anterior measuring 3.6 x 1.8 x 2.3 cm, 0.8 cm from the skin surface, the other more posterior 3.0 x 1.8 x 4.3 cm, 0.14 cm from the skin surface. No significant internal vascularity. IMPRESSION: 2 large irregular axillary abnormalities with characteristics of necrotic lymph nodes, noting relative lack of internal blood flow. [facility]
[2019-03-04] MEDS ORDERED: INSULIN REGULAR HUMAN 300 UNIT/3 ML VIAL ONE (21:06)
[2019-03-04 22:34] LABS: MAGNESIUM 2.7 mg/dL (1.7-2.8); PHOSPHORUS 1.9 mg/dL (2.5-4.6)
[2019-03-04] MEDS ORDERED: POTASSIUM PHOSPHATE 21 MMOL in SODIUM CHLORIDE 0.9% 250 ML IV ONE (22:46)
[2019-03-04] MEDS ORDERED: NS W/20 MEQ KCL 1,000 ML IV SCH (23:00)
[2019-03-05] MEDS: diltiaZEM INJ 125 MG in DEXTROSE 5% 100 ML IV SCH ×3 (00:19→18:23)
[2019-03-05] MEDS: INSULIN REGULAR HUMAN 100 UNIT in SODIUM CHLORIDE 0.9% 100ML 99 ML IV SCH (00:21)
[2019-03-05] MEDS: LINEZOLID 600 MG/300 ML 600 MG/300 ML BAG IV SCH ×2 (03:30→14:42)
[2019-03-05] MEDS: SODIUM CHLORIDE FLUSH 0.9% 10 ML SYRINGE IVP SCH ×3 (04:43→18:59)
[2019-03-05 04:45] LABS: BASOPHILS % (AUTO) 0.3 %; EOSINOPHILS # (AUTO) 0.1 10^3/uL (0.0-0.7); EOSINOPHILS % (AUTO) 0.6 %; HGB - HEMOGLOBIN 13.4 g/dL (14.0-18.0); LYMPHOCYTES % (AUTO) 20.3 %; MEAN CORPUSCULAR HEMOGLOBIN 29.3 pg (27.0-31.0); MEAN CORPUSCULAR HGB CONC 31.6 g/dL (32.0-36.0); MEAN CORPUSCULAR VOLUME 92.8 fL (80.0-94.0); MEAN PLATELET VOLUME 9.8 fL (7.4-11.4); MONOCYTES # (AUTO) 0.6 10^3/uL (0.0-1.0); MONOCYTES % (AUTO) 5.7 %; NEUTROPHILS # (AUTO) 7.2 10^3/uL (1.5-6.6); NEUTROPHILS % (AUTO) 72.4 %; PLT - PLATELET COUNT 163 10^3/uL (130-450); RED BLOOD COUNT 4.57 10^6/uL (4.70-6.10); RED CELL DISTRIBUTION WIDTH 14.2 % (12.0-15.0); WHITE BLOOD COUNT 9.9 x10^3/uL (4.8-10.8)
[2019-03-05] MEDS: D5.45NS W/20 MEQ KCL 1,000 ML IV SCH ×2 (04:45→06:40)
[2019-03-05 04:59] LABS: CALCIUM 7.2 mg/dL (8.5-10.3); CREATININE 2.5 mg/dL (0.6-1.2); MAGNESIUM 2.4 mg/dL (1.7-2.8); PHOSPHORUS 4.1 mg/dL (2.5-4.6)
[2019-03-05] MEDS ORDERED: POTASSIUM CHLORIDE 20 MEQ TABLET PO ONE (05:37)
[2019-03-05] MEDS ORDERED: POTASSIUM CHLOR 20 MEQ/100 ML 20 MEQ/100 ML BAG IV ONE (06:55)
[2019-03-05 07:08] LABS: VBG PH 7.427 (7.31-7.41)
--- NOTE | 2019-03-05 08:43 | PROVIDER PROGRESS NOTE ---
Subjective - Prog Note Date Prog Note Date: 03/05/19 Prog Note Time: 08:41 - Subjective Pt reports feeling: Improved Subjective: He is more awake. Remembers me from yesterday. Still having a little bit of problems of recollection and speech. You can see him struggling to get out of sentence or to answer a question but he is doing so appropriately. Current Medications - Current Medications Current Medications: Active Medications Generic Name Dose Route Start Last Admin Trade Name Freq PRN Reason Stop Dose Admin Acetaminophen 650 mg 03/04/19 03:41 03/05/19 08:02 Tylenol PO 650 mg Q4HR PRN Administration Pain 1 to 4 Heparin Sodium (Porcine) 5,000 unit 03/04/19 09:00 03/04/19 21:16 SUBQ 5,000 unit BID ELENA Administration Insulin Human Regular 100 unit 100 mls @ 9.98 mls/hr 03/04/19 04:00 03/05/19 04:42 / Sodium Chloride IV Infused .Q10H2M ELENA Titration Protocol 0.1 UNIT/KG/HR Linezolid 600 mg in 300 mls @ 300 mls/hr 03/04/19 15:00 03/05/19 03:30 Zyvox 600 Mg/300 Ml IV 300 mls/hr Q12H ELENA Administration Diltiazem HCl 125 mg/ Dextrose 125 mls @ 5 mls/hr 03/04/19 16:00 03/05/19 00:19 IV 15 mg/hr .Q25H ELENA 15 mls/hr Administration Protocol 5 MG/HR Sodium Chloride 1,000 mls @ 100 mls/hr 03/05/19 08:00 Normal Saline 0.9% IV .Q10H ELENA Ondansetron HCl 4 mg 03/04/19 03:41 Zofran Inj IVP Q6HR PRN Nausea / Vomiting Sodium Chloride 10 ml 03/04/19 09:00 03/05/19 04:43 Normal Saline Flush 0.9% IVP 50 ml 0100,0900,1700 ELENA Administration Sodium Chloride 10 ml 03/04/19 03:41 Normal Saline Flush 0.9% IVP PRN PRN NEEDED PER PROVIDER ORDERS Colchicine 0.6 mg PO DAILY 03/04/19 Febuxostat 80 mg PO DAILY 03/04/19 Furosemide [Lasix] 80 mg PO DAILY 03/04/19 Insulin NPH Human Isophane [Humulin N Kwikpen] 25 units SQ AC 03/04/19 Losartan/Hydrochlorothiazide [Losartan-Hctz 100-25 mg Tab] 1 tab PO DAILY 03/04/19 Mycophenolate Mofetil 1,000 mg PO BID 03/04/19 Nifedipine [Nifedipine ER] 30 mg PO DAILY 03/04/19 carvediloL [Carvedilol] 25 mg PO BID 03/04/19 Insulin Lispro [Humalog Kwikpen U-100] 0 unit SUBQ 03/05/19 Objective - Vital Signs/Intake & Output Reviewed Vital Signs: Yes Vital Signs: Vital Signs Temp Pulse Resp BP Pulse Ox 03/05/19 08:00 37.0 C 74 21 98/49 L 95 03/05/19 06:55 72 21 104/66 95 03/05/19 06:00 68 18 112/67 95 03/05/19 05:00 95 19 94/63 95 Intake & Output: Intake & Output 03/02/19 03/03/19 03/04/19 03/05/19 23:59 23:59 23:59 23:59 Intake Total 9677.034 2353.916 Output Total 1775 975 Balance 7902.034 1378.916 - Objective General Appearance: positive: No acute distress, Alert, Other (obese, bearded white male neck central line in place) Eyes Bilateral: positive: PERRL ENT: positive: Dry mucous membranes (He is drinking up to 5 of the 500 cc water containers a day in addition to his IV fluids were giving him) Neck: positive: No JVD. negative: Stiff neck Respiratory: positive: Chest non-tender, Other (diminished at the bases). negative: Wheezes, Rales, Rhonchi Cardiovascular: positive: Regular rate & rhythm, Other (BP is consistently low in low 100's systolic). negative: Systolic murmur, Gallop/S4 Abdomen: positive: Non-tender, No organomegaly, Nml bowel sounds, No distention, Other (large obese abd panus) Skin: positive: Warm, Dry, Other (his right axilla has less densely red, irregular cellulitis that has improved from yesterday) Extremities: positive: No pedal edema, Other (left lower leg in joya wrap, with left foot in brace. right foot warm, no edema, good pulse) Neurologic/Psychiatric: positive: Oriented x3, CN's nml (2-12), Motor nml (but there does seem to be some psychomotor slowing), Slurred/abnml speech (at times) - Lab Results Fish Bones: 03/05/19 04:17 03/05/19 04:17 Other Labs: Lab Results x24hrs 03/05/19 03/05/19 03/05/19 Range/Units 08:12 07:00 06:02 WBC (4.8-10.8) x10^3/uL RBC (4.70-6.10) 10^6/uL Hgb (14.0-18.0) g/dL Hct (42.0-52.0) % MCV (80.0-94.0) fL MCH (27.0-31.0) pg MCHC (32.0-36.0) g/dL RDW (12.0-15.0) % Plt Count (130-450) 10^3/uL MPV (7.4-11.4) fL Neut # (Auto) (1.5-6.6) 10^3/uL Lymph # (Auto) (1.5-3.5) 10^3/uL [place] # (Auto) (0.0-1.0) 10^3/uL Eos # (Auto) (0.0-0.7) 10^3/uL Baso # (Auto) (0.0-0.1) 10^3/uL Absolute Nucleated RBC x10^3/uL Nucleated RBC % /100WBC VBG pH 7.427 H (7.31-7.41) Ionized Calcium 0.98 L (1.15-1.33) mmol/L Sodium (135-145) mmol/L Potassium (3.5-5.0) mmol/L Chloride (101-111) mmol/L Carbon Dioxide (21-32) mmol/L Anion Gap (6-13) BUN (6-20) mg/dL Creatinine (0.6-1.2) mg/dL Estimated GFR (MDRD) (>89) Glucose (70-100) mg/dL POC Whole Bld Glucose 80 145 H (70 - 100) mg/dL Glycated Hemoglobin (4.6-6.2) % Estim Average Glucose (70-100) Lactic Acid (0.5-2.2) mmol/L Calcium (8.5-10.3) mg/dL Phosphorus (2.5-4.6) mg/dL Magnesium (1.7-2.8) mg/dL Albumin (3.2-5.5) g/dL 03/05/19 03/05/19 03/05/19 Range/Units 04:17 04:17 04:17 WBC 9.9 (4.8-10.8) x10^3/uL RBC 4.57 L (4.70-6.10) 10^6/uL Hgb 13.4 L (14.0-18.0) g/dL Hct 42.4 (42.0-52.0) % MCV 92.8 (80.0-94.0) fL MCH 29.3 (27.0-31.0) pg MCHC 31.6 L (32.0-36.0) g/dL RDW 14.2 (12.0-15.0) % Plt Count 163 (130-450) 10^3/uL MPV 9.8 (7.4-11.4) fL Neut # (Auto) 7.2 H (1.5-6.6) 10^3/uL Lymph # (Auto) 2.0 (1.5-3.5) 10^3/uL [place] # (Auto) 0.6 (0.0-1.0) 10^3/uL Eos # (Auto) 0.1 (0.0-0.7) 10^3/uL Baso # (Auto) 0.0 (0.0-0.1) 10^3/uL Absolute Nucleated RBC 0.00 x10^3/uL Nucleated RBC % 0.0 /100WBC VBG pH (7.31-7.41) Ionized Calcium (1.15-1.33) mmol/L Sodium 137 (135-145) mmol/L Potassium 3.0 L (3.5-5.0) mmol/L Chloride 97 L (101-111) mmol/L Carbon Dioxide 29 (21-32) mmol/L Anion Gap 11.0 (6-13) BUN 71 H (6-20) mg/dL Creatinine 2.5 H (0.6-1.2) mg/dL Estimated GFR (MDRD) 27 L (>89) Glucose 150 H (70-100) mg/dL POC Whole Bld Glucose (70 - 100) mg/dL Glycated Hemoglobin (4.6-6.2) % Estim Average Glucose (70-100) Lactic Acid (0.5-2.2) mmol/L Calcium 7.2 L (8.5-10.3) mg/dL Phosphorus 4.1 (2.5-4.6) mg/dL Magnesium 2.4 (1.7-2.8) mg/dL Albumin 2.8 L (3.2-5.5) g/dL 03/05/19 03/05/19 03/05/19 Range/Units 03:27 02:19 01:02 WBC (4.8-10.8) x10^3/uL RBC (4.70-6.10) 10^6/uL Hgb (14.0-18.0) g/dL Hct (42.0-52.0) % MCV (80.0-94.0) fL MCH (27.0-31.0) pg MCHC (32.0-36.0) g/dL RDW (12.0-15.0) % Plt Count (130-450) 10^3/uL MPV (7.4-11.4) fL Neut # (Auto) (1.5-6.6) 10^3/uL Lymph # (Auto) (1.5-3.5) 10^3/uL [place] # (Auto) (0.0-1.0) 10^3/uL Eos # (Auto) (0.0-0.7) 10^3/uL Baso # (Auto) (0.0-0.1) 10^3/uL Absolute Nucleated RBC x10^3/uL Nucleated RBC % /100WBC VBG pH (7.31-7.41) Ionized Calcium (1.15-1.33) mmol/L Sodium (135-145) mmol/L Potassium (3.5-5.0) mmol/L Chloride (101-111) mmol/L Carbon Dioxide (21-32) mmol/L Anion Gap (6-13) BUN (6-20) mg/dL Creatinine (0.6-1.2) mg/dL Estimated GFR (MDRD) (>89) Glucose (70-100) mg/dL POC Whole Bld Glucose 160 H 156 H 163 H (70 - 100) mg/dL Glycated Hemoglobin (4.6-6.2) % Estim Average Glucose (70-100) Lactic Acid (0.5-2.2) mmol/L Calcium (8.5-10.3) mg/dL Phosphorus (2.5-4.6) mg/dL Magnesium (1.7-2.8) mg/dL Albumin (3.2-5.5) g/dL 03/05/19 03/04/19 03/04/19 Range/Units 00:00 23:05 22:02 WBC (4.8-10.8) x10^3/uL RBC (4.70-6.10) 10^6/uL Hgb (14.0-18.0) g/dL Hct (42.0-52.0) % MCV (80.0-94.0) fL MCH (27.0-31.0) pg MCHC (32.0-36.0) g/dL RDW (12.0-15.0) % Plt Count (130-450) 10^3/uL MPV (7.4-11.4) fL Neut # (Auto) (1.5-6.6) 10^3/uL Lymph # (Auto) (1.5-3.5) 10^3/uL [place] # (Auto) (0.0-1.0) 10^3/uL Eos # (Auto) (0.0-0.7) 10^3/uL Baso # (Auto) (0.0-0.1) 10^3/uL Absolute Nucleated RBC x10^3/uL Nucleated RBC % /100WBC VBG pH (7.31-7.41) Ionized Calcium (1.15-1.33) mmol/L Sodium (135-145) mmol/L Potassium (3.5-5.0) mmol/L Chloride (101-111) mmol/L Carbon Dioxide (21-32) mmol/L Anion Gap (6-13) BUN (6-20) mg/dL Creatinine (0.6-1.2) mg/dL Estimated GFR (MDRD) (>89) Glucose (70-100) mg/dL POC Whole Bld Glucose 112 H 71 (70 - 100) mg/dL Glycated Hemoglobin (4.6-6.2) % Estim Average Glucose (70-100) Lactic Acid (0.5-2.2) mmol/L Calcium (8.5-10.3) mg/dL Phosphorus 1.9 L (2.5-4.6) mg/dL Magnesium 2.7 (1.7-2.8) mg/dL Albumin (3.2-5.5) g/dL 03/04/19 03/04/19 03/04/19 Range/Units 22:02 20:56 20:13 WBC (4.8-10.8) x10^3/uL RBC (4.70-6.10) 10^6/uL Hgb (14.0-18.0) g/dL Hct (42.0-52.0) % MCV (80.0-94.0) fL MCH (27.0-31.0) pg MCHC (32.0-36.0) g/dL RDW (12.0-15.0) % Plt Count (130-450) 10^3/uL MPV (7.4-11.4) fL Neut # (Auto) (1.5-6.6) 10^3/uL Lymph # (Auto) (1.5-3.5) 10^3/uL [place] # (Auto) (0.0-1.0) 10^3/uL Eos # (Auto) (0.0-0.7) 10^3/uL Baso # (Auto) (0.0-0.1) 10^3/uL Absolute Nucleated RBC x10^3/uL Nucleated RBC % /100WBC VBG pH (7.31-7.41) Ionized Calcium (1.15-1.33) mmol/L Sodium (135-145) mmol/L Potassium 3.5 (3.5-5.0) mmol/L Chloride (101-111) mmol/L Carbon Dioxide (21-32) mmol/L Anion Gap (6-13) BUN (6-20) mg/dL Creatinine (0.6-1.2) mg/dL Estimated GFR (MDRD) (>89) Glucose (70-100) mg/dL POC Whole Bld Glucose 241 H 215 H (70 - 100) mg/dL Glycated Hemoglobin (4.6-6.2) % Estim Average Glucose (70-100) Lactic Acid (0.5-2.2) mmol/L Calcium (8.5-10.3) mg/dL Phosphorus (2.5-4.6) mg/dL Magnesium (1.7-2.8) mg/dL Albumin (3.2-5.5) g/dL 03/04/19 03/04/19 03/04/19 Range/Units 18:59 18:18 18:14 WBC (4.8-10.8) x10^3/uL RBC (4.70-6.10) 10^6/uL Hgb (14.0-18.0) g/dL Hct (42.0-52.0) % MCV (80.0-94.0) fL MCH (27.0-31.0) pg MCHC (32.0-36.0) g/dL RDW (12.0-15.0) % Plt Count (130-450) 10^3/uL MPV (7.4-11.4) fL Neut # (Auto) (1.5-6.6) 10^3/uL Lymph # (Auto) (1.5-3.5) 10^3/uL [place] # (Auto) (0.0-1.0) 10^3/uL Eos # (Auto) (0.0-0.7) 10^3/uL Baso # (Auto) (0.0-0.1) 10^3/uL Absolute Nucleated RBC x10^3/uL Nucleated RBC % /100WBC VBG pH (7.31-7.41) Ionized Calcium (1.15-1.33) mmol/L Sodium 140 (135-145) mmol/L Potassium 2.8 L (3.5-5.0) mmol/L Chloride 96 L (101-111) mmol/L Carbon Dioxide 32 (21-32) mmol/L Anion Gap 12.0 (6-13) BUN 85 H* (6-20) mg/dL Creatinine 3.0 H (0.6-1.2) mg/dL Estimated GFR (MDRD) 22 L (>89) Glucose 286 H (70-100) mg/dL POC Whole Bld Glucose 281 H 381 H (70 - 100) mg/dL Glycated Hemoglobin (4.6-6.2) % Estim Average Glucose (70-100) Lactic Acid (0.5-2.2) mmol/L Calcium 8.4 L (8.5-10.3) mg/dL Phosphorus (2.5-4.6) mg/dL Magnesium (1.7-2.8) mg/dL Albumin (3.2-5.5) g/dL 03/04/19 03/04/19 03/04/19 Range/Units 17:07 16:08 15:16 WBC (4.8-10.8) x10^3/uL RBC (4.70-6.10) 10^6/uL Hgb (14.0-18.0) g/dL Hct (42.0-52.0) % MCV (80.0-94.0) fL MCH (27.0-31.0) pg MCHC (32.0-36.0) g/dL RDW (12.0-15.0) % Plt Count (130-450) 10^3/uL MPV (7.4-11.4) fL Neut # (Auto) (1.5-6.6) 10^3/uL Lymph # (Auto) (1.5-3.5) 10^3/uL [place] # (Auto) (0.0-1.0) 10^3/uL Eos # (Auto) (0.0-0.7) 10^3/uL Baso # (Auto) (0.0-0.1) 10^3/uL Absolute Nucleated RBC x10^3/uL Nucleated RBC % /100WBC VBG pH (7.31-7.41) Ionized Calcium (1.15-1.33) mmol/L Sodium 137 (135-145) mmol/L Potassium 2.8 L (3.5-5.0) mmol/L Chloride 93 L (101-111) mmol/L Carbon Dioxide 31 (21-32) mmol/L Anion Gap 13.0 (6-13) BUN 86 H* (6-20) mg/dL Creatinine 3.0 H (0.6-1.2) mg/dL Estimated GFR (MDRD) 22 L (>89) Glucose 477 H 575 H* 605 H* (70-100) mg/dL POC Whole Bld Glucose (70 - 100) mg/dL Glycated Hemoglobin (4.6-6.2) % Estim Average Glucose (70-100) Lactic Acid (0.5-2.2) mmol/L Calcium 8.2 L (8.5-10.3) mg/dL Phosphorus 2.0 L (2.5-4.6) mg/dL Magnesium 3.0 H (1.7-2.8) mg/dL Albumin (3.2-5.5) g/dL 03/04/19 03/04/19 03/04/19 Range/Units 14:10 12:59 12:08 WBC (4.8-10.8) x10^3/uL RBC (4.70-6.10) 10^6/uL Hgb (14.0-18.0) g/dL Hct (42.0-52.0) % MCV (80.0-94.0) fL MCH (27.0-31.0) pg MCHC (32.0-36.0) g/dL RDW (12.0-15.0) % Plt Count (130-450) 10^3/uL MPV (7.4-11.4) fL Neut # (Auto) (1.5-6.6) 10^3/uL Lymph # (Auto) (1.5-3.5) 10^3/uL [place] # (Auto) (0.0-1.0) 10^3/uL Eos # (Auto) (0.0-0.7) 10^3/uL Baso # (Auto) (0.0-0.1) 10^3/uL Absolute Nucleated RBC x10^3/uL Nucleated RBC % /100WBC VBG pH (7.31-7.41) Ionized Calcium (1.15-1.33) mmol/L Sodium 135 (135-145) mmol/L Potassium 3.6 (3.5-5.0) mmol/L Chloride 89 L (101-111) mmol/L Carbon Dioxide 30 (21-32) mmol/L Anion Gap 16.0 H (6-13) BUN 91 H* (6-20) mg/dL Creatinine 3.4 H (0.6-1.2) mg/dL Estimated GFR (MDRD) 19 L (>89) Glucose 683 H* 690 H* 698 H* (70-100) mg/dL POC Whole Bld Glucose (70 - 100) mg/dL Glycated Hemoglobin (4.6-6.2) % Estim Average Glucose (70-100) Lactic Acid (0.5-2.2) mmol/L Calcium 8.2 L (8.5-10.3) mg/dL Phosphorus 3.3 (2.5-4.6) mg/dL Magnesium 3.1 H (1.7-2.8) mg/dL Albumin (3.2-5.5) g/dL 03/04/19 03/04/19 03/04/19 Range/Units 11:06 09:30 09:30 WBC (4.8-10.8) x10^3/uL RBC (4.70-6.10) 10^6/uL Hgb (14.0-18.0) g/dL Hct (42.0-52.0) % MCV (80.0-94.0) fL MCH (27.0-31.0) pg MCHC (32.0-36.0) g/dL RDW (12.0-15.0) % Plt Count (130-450) 10^3/uL MPV (7.4-11.4) fL Neut # (Auto) (1.5-6.6) 10^3/uL Lymph # (Auto) (1.5-3.5) 10^3/uL [place] # (Auto) (0.0-1.0) 10^3/uL Eos # (Auto) (0.0-0.7) 10^3/uL Baso # (Auto) (0.0-0.1) 10^3/uL Absolute Nucleated RBC x10^3/uL Nucleated RBC % /100WBC VBG pH (7.31-7.41) Ionized Calcium (1.15-1.33) mmol/L Sodium 140 (135-145) mmol/L Potassium 3.6 (3.5-5.0) mmol/L Chloride 92 L (101-111) mmol/L Carbon Dioxide 32 (21-32) mmol/L Anion Gap 16.0 H (6-13) BUN 95 H* (6-20) mg/dL Creatinine 3.3 H (0.6-1.2) mg/dL Estimated GFR (MDRD) 19 L (>89) Glucose 702 H* 808 H* (70-100) mg/dL POC Whole Bld Glucose (70 - 100) mg/dL Glycated Hemoglobin (4.6-6.2) % Estim Average Glucose (70-100) Lactic Acid 2.6 H (0.5-2.2) mmol/L Calcium 8.5 (8.5-10.3) mg/dL Phosphorus 3.4 (2.5-4.6) mg/dL Magnesium 3.8 H (1.7-2.8) mg/dL Albumin (3.2-5.5) g/dL 03/04/19 Range/Units 09:30 WBC (4.8-10.8) x10^3/uL RBC (4.70-6.10) 10^6/uL Hgb (14.0-18.0) g/dL Hct (42.0-52.0) % MCV (80.0-94.0) fL MCH (27.0-31.0) pg MCHC (32.0-36.0) g/dL RDW (12.0-15.0) % Plt Count (130-450) 10^3/uL MPV (7.4-11.4) fL Neut # (Auto) (1.5-6.6) 10^3/uL Lymph # (Auto) (1.5-3.5) 10^3/uL [place] # (Auto) (0.0-1.0) 10^3/uL Eos # (Auto) (0.0-0.7) 10^3/uL Baso # (Auto) (0.0-0.1) 10^3/uL Absolute Nucleated RBC x10^3/uL Nucleated RBC % /100WBC VBG pH (7.31-7.41) Ionized Calcium (1.15-1.33) mmol/L Sodium (135-145) mmol/L Potassium (3.5-5.0) mmol/L Chloride (101-111) mmol/L Carbon Dioxide (21-32) mmol/L Anion Gap (6-13) BUN (6-20) mg/dL Creatinine (0.6-1.2) mg/dL Estimated GFR (MDRD) (>89) Glucose (70-100) mg/dL POC Whole Bld Glucose (70 - 100) mg/dL Glycated Hemoglobin 16.6 H (4.6-6.2) % Estim Average Glucose 430 H (70-100) Lactic Acid (0.5-2.2) mmol/L Calcium (8.5-10.3) mg/dL Phosphorus (2.5-4.6) mg/dL Magnesium (1.7-2.8) mg/dL Albumin (3.2-5.5) g/dL Assessment/Plan - Problem List (1) Hyperosmolar non-ketotic state in patient with type 2 diabetes mellitus Impression: continue high IVF rate, glucose goal has been met so insulin drip will be stopped. resume he usual NPH tid ac. resume SS short acting ac start carb diet as tolerated continue to watch K, Phos, Mg and supplement as needed (2) Acute kidney injury superimposed on chronic kidney disease Impression: his previous labs from 11/2018 show a creat of 1.45 so he already has CKD. Creat has slowly responded by dropping. Will continue to monitor and hope he returns to baseline. 3.7> 3.8> 3.3>3.4>3>2.5 today (3) Furuncle of axillary fold Impression: with cellulitis. US shows 2 irregular lobular marginated hypoechoic abnormalities with hyperechoic center in the right mid axilla. 3.6 x 1.8 x 2.3 cm. The other one is 3.0 x 1.8 x 4.3 cm. No internal vascularity. Characteristics of necrotic lymph nodes. Plan: started linezolid not vancomycin since his creat is high. Day #2 and his swelling has improved. (4) Hypertension Impression: usual medications still being held since his blood pressure is low. Qualifiers: Hypertension type: essential hypertension Qualified Code(s): I10 - Essential (primary) hypertension (5) Fracture of metatarsal of left foot, closed Impression: if he is still here 03/06, will see if we have ortho on premises to see him. Qualifiers: Encounter type: initial encounter Metatarsal bone: third Fracture alignment: nondisplaced Qualified Code(s): S92.335A - Nondisplaced fracture of third metatarsal bone, left foot, initial encounter for closed fracture
[2019-03-05] MEDS: HEPARIN 5,000 UNIT/ML VIAL SUBQ SCH ×2 (09:03→21:14)
[2019-03-05] MEDS: SODIUM CHLORIDE 0.9% 1,000 ML IV SCH ×2 (09:46→18:23)
[2019-03-05] MEDS: INSULIN REGULAR HUMAN 100 UNIT in SODIUM CHLORIDE 0.9% 100ML 99 ML IV STA (10:00)
[2019-03-05] MEDS: INSULIN NPH HUMAN 300 UNIT/3 ML VIAL SUBQ SCH ×2 (11:20→16:52)
[2019-03-05] MEDS: INSULIN ASPART 300 UNIT/3 ML PEN SUBQ SCH ×3 (12:30→21:14)
[2019-03-05] MEDS: carvediloL 12.5 MG TABLET PO SCH (15:40)
[2019-03-05] MEDS ORDERED: LACTATED RINGERS 500 ML IV ONE (19:45)
[2019-03-05] MEDS: SODIUM CHLORIDE FLUSH 0.9% 10 ML SYRINGE IVP PRN ×2 (20:47→21:00)
[2019-03-05] MEDS ORDERED: INSULIN REGULAR HUMAN 300 UNIT/3 ML VIAL IVP ONE (20:59)
[2019-03-05] MEDS ORDERED: carvediloL 12.5 MG TABLET PO SCH (21:00)
[2019-03-05 21:31] LABS: HB2 TOTAL 13.5 g/dL; HEMOGLOBIN A1C 2.15 g/dL; HEMOGLOBIN A1C % 16.7 % (4.6-6.2)
--- NOTE | 2019-03-05 22:11 | Ultrasound Report ---
Reason: edema legs w new onset afib Procedure Date: 03/05/2019 Accession Number: [id number] / [id number] Procedure: US - Duplex Ext Veins Bilateral CPT Code: Final Report FULL RESULT: EXAM: BILATERAL LOWER EXTREMITY VENOUS ULTRASOUND EXAM DATE: 03/05/2019 08:14 PM. CLINICAL HISTORY: Edema legs w new onset afib. COMPARISON: None. TECHNIQUE: Real-time sonographic vascular imaging was performed by the school childcare attendant through the lower extremities utilizing both color-flow and Doppler spectral analysis. Multiple lifeline representatives static images were saved for review. FINDINGS: Right: Common Femoral Vein (CFV): Normal. CFV-GSV Junction: Normal. Profunda Femoral Vein (PFV): Normal. Femoral Vein (FV) Prox: Normal. Femoral Vein (FV) Mid: Normal. Femoral Vein (FV) Dist: Normal. Popliteal Vein: Normal. Posterior Tibial Veins: Limited evaluation but no clot seen. Peroneal Veins: Limited evaluation. Left: Common Femoral Vein (CFV): Normal. CFV-GSV Junction: Normal. Profunda Femoral Vein (PFV): Normal. Femoral Vein (FV) Prox: Normal. Femoral Vein (FV) Mid: Normal. Femoral Vein (FV) Dist: Normal. Popliteal Vein: Normal. Posterior Tibial Veins: Limited evaluation, but no clot seen. Peroneal Veins: Limited evaluation. Other: 2.7 x 0.8 x 1.6 cm cystic structure in the medial posterior knee, possibly Cruz's cyst. IMPRESSION: No evidence for deep venous thrombosis bilaterally. RADIA
[2019-03-06] MEDS ORDERED: INSULIN REGULAR HUMAN 300 UNIT/3 ML VIAL IVP ONE (00:27)
[2019-03-06] MEDS: SODIUM CHLORIDE FLUSH 0.9% 10 ML SYRINGE IVP SCH ×3 (00:56→16:57)
[2019-03-06] MEDS ORDERED: POLYETHYLENE GLYCOL 3350 17 GM PACKET PO PRN (02:01)
[2019-03-06] MEDS: LINEZOLID 600 MG/300 ML 600 MG/300 ML BAG IV SCH ×2 (03:00→14:31)
[2019-03-06] MEDS: SODIUM CHLORIDE 0.9% 1,000 ML IV SCH ×3 (03:00→22:51)
[2019-03-06 05:32] LABS: BASOPHILS % (AUTO) 0.5 %; EOSINOPHILS # (AUTO) 0.1 10^3/uL (0.0-0.7); EOSINOPHILS % (AUTO) 2.1 %; HGB - HEMOGLOBIN 11.8 g/dL (14.0-18.0); LYMPHOCYTES # (AUTO) 1.5 10^3/uL (1.5-3.5); LYMPHOCYTES % (AUTO) 25.6 %; MEAN CORPUSCULAR HEMOGLOBIN 29.6 pg (27.0-31.0); MEAN CORPUSCULAR HGB CONC 31.6 g/dL (32.0-36.0); MEAN CORPUSCULAR VOLUME 93.7 fL (80.0-94.0); MEAN PLATELET VOLUME 9.8 fL (7.4-11.4); MONOCYTES # (AUTO) 0.3 10^3/uL (0.0-1.0); MONOCYTES % (AUTO) 5.7 %; NEUTROPHILS # (AUTO) 3.7 10^3/uL (1.5-6.6); NEUTROPHILS % (AUTO) 64.5 %; PLT - PLATELET COUNT 107 10^3/uL (130-450); RED BLOOD COUNT 3.98 10^6/uL (4.70-6.10); RED CELL DISTRIBUTION WIDTH 13.6 % (12.0-15.0); WHITE BLOOD COUNT 5.8 x10^3/uL (4.8-10.8)
[2019-03-06 05:39] LABS: CALCIUM 7.3 mg/dL (8.5-10.3); MAGNESIUM 2.3 mg/dL (1.7-2.8); PHOSPHORUS 2.8 mg/dL (2.5-4.6)
[2019-03-06 06:36] LABS: VBG PH 7.388 (7.31-7.41)
[2019-03-06] MEDS: INSULIN NPH HUMAN 300 UNIT/3 ML VIAL SUBQ SCH ×3 (06:46→16:56)
[2019-03-06] MEDS: INSULIN ASPART 300 UNIT/3 ML PEN SUBQ SCH ×6 (08:59→22:17)
[2019-03-06] MEDS: POLYETHYLENE GLYCOL 3350 17 GM PACKET PO SCH (09:00)
[2019-03-06] MEDS: DOCUSATE SODIUM 250 MG CAPSULE PO SCH (09:01)
[2019-03-06] MEDS: carvediloL 12.5 MG TABLET PO SCH ×2 (09:01→22:14)
[2019-03-06] MEDS: SENNA 8.6 MG TABLET PO SCH (09:01)
[2019-03-06] MEDS: CALCIUM CITRATE 250 MG TABLET PO SCH ×4 (09:01→22:15)
[2019-03-06] MEDS: HEPARIN 5,000 UNIT/ML VIAL SUBQ SCH ×2 (09:03→22:19)
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
--- NOTE | 2019-03-06 12:19 | CONSULTATION NOTE ---
DATE OF SERVICE: 03/06/2019 Physician: Rodrigo Peterson MD REFERRING PHYSICIAN: Dr. Martin of the hospitalist service. HISTORY OF PRESENT ILLNESS: Matti Onofre is a 58-year-old obese male diabetic, who was recently admitted to the hospital for management of his diabetic condition. He relates that he had a fall on , injuring his knee, but more noticeably has been noticing swelling and pain to his left foot. X-rays on admission of his left foot showed a nondisplaced proximal third metatar jake fracture, extra-articular. He was put in a short-leg posterior splint and has been nonweightbear ing, and essentially bedridden. His diabetic ketoacidosis was being managed medically. His conditio n has improved. Still notes some swelling and discomfort in the foot. PHYSICAL EXAMINATION: Out of a short-leg posterior splint, he has some mild swelling. No erythema o r warmth around his foot. Has tenderness primarily over his proximal third metatarsal. Less tender on the medial or lateral borders of his foot. Moves his toes satisfactorily. Sensation appears jailene sly intact. He has voluntary motion of his toes and ankles. IMAGING: X-rays show a nondisplaced extra-articular proximal third metatarsal fracture, left foot. ASSESSMENT: 1. Closed and minimally displaced proximal left third metatarsal fracture. 2. Diabetes. PLAN: We will try to see if he can be managed without a splint. We will order him a CAM walking escudero t. If he tolerates this, he can be started with therapy and may go weightbearing as tolerated with a walker. If this is too uncomfortable, then we will need to put him back into a splint and/or cast. TD: 03/06/2019 12:08
[2019-03-06] MEDS ORDERED: INSULIN ASPART 300 UNIT/3 ML PEN SUBQ ONE (16:43)
[2019-03-07] MEDS: LINEZOLID 600 MG/300 ML 600 MG/300 ML BAG IV SCH ×2 (03:45→15:41)
[2019-03-07 06:00] LABS: BASOPHILS % (AUTO) 0.5 %; EOSINOPHILS # (AUTO) 0.1 10^3/uL (0.0-0.7); EOSINOPHILS % (AUTO) 3.1 %; HGB - HEMOGLOBIN 10.8 g/dL (14.0-18.0); LYMPHOCYTES % (AUTO) 26.6 %; MEAN CORPUSCULAR HEMOGLOBIN 28.9 pg (27.0-31.0); MEAN CORPUSCULAR HGB CONC 30.7 g/dL (32.0-36.0); MEAN CORPUSCULAR VOLUME 94.1 fL (80.0-94.0); MEAN PLATELET VOLUME 10.1 fL (7.4-11.4); MONOCYTES # (AUTO) 0.3 10^3/uL (0.0-1.0); MONOCYTES % (AUTO) 6.5 %; NEUTROPHILS # (AUTO) 2.3 10^3/uL (1.5-6.6); PLT - PLATELET COUNT 81 10^3/uL (130-450); RED BLOOD COUNT 3.74 10^6/uL (4.70-6.10); RED CELL DISTRIBUTION WIDTH 13.9 % (12.0-15.0); WHITE BLOOD COUNT 3.8 x10^3/uL (4.8-10.8)
[2019-03-07 06:11] LABS: CREATININE 1.8 mg/dL (0.6-1.2); MAGNESIUM 2.2 mg/dL (1.7-2.8); PHOSPHORUS 2.7 mg/dL (2.5-4.6)
[2019-03-07] MEDS: SODIUM CHLORIDE FLUSH 0.9% 10 ML SYRINGE IVP SCH ×3 (06:30→16:58)
[2019-03-07] MEDS: INSULIN NPH HUMAN 300 UNIT/3 ML VIAL SUBQ SCH ×2 (07:14→11:55)
[2019-03-07] MEDS: INSULIN ASPART 300 UNIT/3 ML PEN SUBQ SCH ×7 (08:24→20:58)
[2019-03-07] MEDS: carvediloL 12.5 MG TABLET PO SCH ×2 (08:26→20:57)
[2019-03-07] MEDS: POLYETHYLENE GLYCOL 3350 17 GM PACKET PO SCH (08:26)
[2019-03-07] MEDS: SENNA 8.6 MG TABLET PO SCH (08:27)
[2019-03-07] MEDS: DOCUSATE SODIUM 250 MG CAPSULE PO SCH (08:27)
[2019-03-07] MEDS: HEPARIN 5,000 UNIT/ML VIAL SUBQ SCH ×2 (10:24→20:35)
--- NOTE | 2019-03-07 12:22 | PROVIDER PROGRESS NOTE ---
Assessment/Plan - Problem List (1) Hyperosmolar non-ketotic state in patient with type 2 diabetes mellitus Assessment/Plan: Glu improving Escalating Insulin doses Will transfer out of ICU today (2) Altered mental status Qualifiers: Altered mental status type: disorientation Qualified Code(s): R41.0 - Disorientation, unspecified Assessment/Plan: His altered mental status was thought to be due to HONK, but he is slow to become lucid Also, he is very fatigued with the activity he accomplished today0 Apnea may give him non-restfull sleep. Will order an overnight oximetry (3) Acute on chronic kidney failure Assessment/Plan: Creat is improving daily. He is 15L in (+) fluid balance since admission Will stop iv saline, infusing at 100 cc/hr, since he is taking a diet and fluids well Monitor BMP daily (4) Anemia Assessment/Plan: His admission Hgb was 17, now is down to 10. He is 15L (+) fluid balance and the anemia is most likely hemodilutional. Will check Iron stores, B12 and Folate and replace if low. (5) Furuncle of axillary fold Assessment/Plan: He remains on iv antibx, day #3 The wound culture has grown Beta-hemolytic Strep, MRSA (+). Contact precautions ordered. Will switch to po antibx Linazolid starting tomorrow (6) Fracture of metatarsal of left foot, closed Assessment/Plan: He suffered this in his hotel room from falling Ortho consult appreciated A weight bearing boot has been started Pain meds prn ordered. Will decrease narcotics to alow him to wake up more PT is working with the patient and they have advised a walker and to rehab at a SNF (7) Atrial flutter Assessment/Plan: The first EKG and telemetry showed afib-flutter The EKG yesterday showed NSR with T wave abnormalities. The Echo was done and showed normal LVEF and normal PA pressure There was no TSH checked regarding the possibility of hyperthyroidism There have been no troponins checked after the admission one on 03/04/19, to check whether the afib-flutter is from an RI. Will check 2 troponins today. Obtain TSH (8) Abnormal EKG Assessment/Plan: The EKG yesterday showed NSR with T wave abnormalities, changed from the admission EKG which had Aflutter with RVR. The Echo was done yesterday, 03/06/19, and showed normal LVEF and normal PA pressure There have been no troponins checked after the admission one on 03/04/19, in order to check whether the afib-flutter is from an RI. Will recheck a troponin, if still neg, he will need outpt stress test to evaluate the abnormal EKG. If positive, will consider transfer for a cor angio. (9) Hypertension Assessment/Plan: His home BP meds were on hold due to "soft" BP and dehydration, they are now slowly being resumed: Carvedilol restarted, Losartan will resume next, but hold the Lasix (10) Morbid obesity with BMI of 40.0-44.9, adult Assessment/Plan: PT working with him (11) Hx of gout Assessment/Plan: Will restart his Colchicine - Current Meds Current Meds: Current Medications Generic Name Dose Route Start Last Admin Trade Name Freq PRN Reason Stop Dose Admin Acetaminophen 650 mg 03/04/19 03:41 03/05/19 08:02 Tylenol PO 650 mg Q4HR PRN Administration Pain 1 to 4 Carvedilol 25 mg 03/05/19 16:00 03/07/19 08:26 Coreg PO 25 mg BID ELENA Administration Docusate Sodium 250 - 500 mg 03/06/19 09:00 03/07/19 08:27 Colace 250mg Capsule PO 500 mg DAILY ELENA Administration Heparin Sodium (Porcine) 5,000 unit 03/04/19 09:00 03/07/19 10:24 SUBQ Not Given BID ELENA Linezolid 600 mg in 300 mls @ 300 mls/hr 03/04/19 15:00 03/07/19 03:45 Zyvox 600 Mg/300 Ml IV 300 mls/hr Q12H ELENA Administration Insulin Aspart 5 unit 03/06/19 12:00 03/07/19 11:55 Novolog SUBQ 5 unit TIDWM ELENA Administration Protocol Insulin Aspart 1 - 9 unit 03/06/19 12:00 03/07/19 11:56 Novolog SUBQ 9 unit 0800,1200,1700,2100 ELENA Administration Protocol Insulin Human NPH 30 unit 03/06/19 07:00 03/07/19 11:55 Humulin N SUBQ 30 unit AC ELENA Administration Polyethylene Glycol 17 gm 03/06/19 09:00 03/07/19 08:26 Miralax PO 17 gm DAILY ELENA Administration Senna 8.6 - 17.2 mg 03/06/19 09:00 03/07/19 08:27 Senokot PO 17.2 mg DAILY ELENA Administration Sodium Chloride 10 ml 03/04/19 09:00 03/07/19 07:15 Normal Saline Flush 0.9% IVP 30 ml 0100,0900,1700 ELENA Administration Sodium Chloride 10 ml 03/04/19 03:41 03/05/19 21:00 Normal Saline Flush 0.9% IVP 10 ml PRN PRN Administration NEEDED PER PROVIDER ORDERS - Lab Result Fish Bone Diagrams: 03/07/19 05:25 03/07/19 05:25 - Additional Planning My Orders: My Active Orders 03/07/19 05:00 TROPONIN I HIGH SENSITIVITY [IAI] Routine 03/07/19 12:17 TROPONIN I HIGH SENSITIVITY [IAI] Stat 03/07/19 15:00 Senna [Senokot] DOSE mg RTE FREQ Subjective - Subjective Patient Reports: Other (He is sleeping currently, after 30 min with PT today. As I entered the room I witnessed him to have apnea during sleep) Objective Vital Signs: Vital Signs - 24 hr 03/06/19 03/06/19 03/06/19 13:00 13:55 14:00 Temperature 37.2 C Heart Rate [ 82 Activity] Heart Rate [ 76 77 Monitoring electrodes] Heart Rate [ 83 Supine] Respiratory 23 22 Rate Blood Pressure 94/69 [Activity] Blood Pressure 108/58 L 107/70 [Left Brachial artery] Blood Pressure 102/73 [Supine] O2 Saturation 94 95 03/06/19 03/06/19 03/06/19 15:00 16:00 17:00 Temperature 37.1 C Heart Rate [ Activity] Heart Rate [ 78 75 76 Monitoring electrodes] Heart Rate [ Supine] Respiratory 30 H 31 H 22 Rate Blood Pressure [Activity] Blood Pressure 109/60 117/68 121/75 [Left Brachial artery] Blood Pressure [Supine] O2 Saturation 91 L 95 94 03/06/19 03/06/19 03/06/19 18:00 19:00 20:00 Temperature 36.7 C Heart Rate [ Activity] Heart Rate [ 78 80 86 Monitoring electrodes] Heart Rate [ Supine] Respiratory 20 25 H 24 Rate Blood Pressure [Activity] Blood Pressure 93/76 123/65 110/58 L [Left Brachial artery] Blood Pressure [Supine] O2 Saturation 94 94 95 03/06/19 03/06/19 03/06/19 21:00 22:00 23:00 Temperature 37.3 C Heart Rate [ Activity] Heart Rate [ 81 80 75 Monitoring electrodes] Heart Rate [ Supine] Respiratory 28 H 26 H 24 Rate Blood Pressure [Activity] Blood Pressure 132/87 H 136/85 H 104/63 [Left Brachial artery] Blood Pressure [Supine] O2 Saturation 99 95 95 03/07/19 03/07/19 03/07/19 00:00 01:00 02:00 Temperature Heart Rate [ Activity] Heart Rate [ 73 74 67 Monitoring electrodes] Heart Rate [ Supine] Respiratory 24 27 H 19 Rate Blood Pressure [Activity] Blood Pressure 117/81 H 125/77 138/75 H [Left Brachial artery] Blood Pressure [Supine] O2 Saturation 97 93 96 03/07/19 03/07/19 03/07/19 03:00 04:00 05:00 Temperature 36.6 C Heart Rate [ Activity] Heart Rate [ 69 76 74 Monitoring electrodes] Heart Rate [ Supine] Respiratory 24 19 21 Rate Blood Pressure [Activity] Blood Pressure 144/81 H 147/90 H 148/88 H [Left Brachial artery] Blood Pressure [Supine] O2 Saturation 91 L 95 96 03/07/19 03/07/19 03/07/19 06:00 07:00 08:00 Temperature 36.7 C Heart Rate [ Activity] Heart Rate [ 73 72 76 Monitoring electrodes] Heart Rate [ Supine] Respiratory 21 18 24 Rate Blood Pressure [Activity] Blood Pressure 152/87 H 148/80 H 141/95 H [Left Brachial artery] Blood Pressure [Supine] O2 Saturation 97 97 92 03/07/19 03/07/19 03/07/19 09:00 10:00 11:00 Temperature Heart Rate [ Activity] Heart Rate [ 81 79 82 Monitoring electrodes] Heart Rate [ Supine] Respiratory 20 25 H 28 H Rate Blood Pressure [Activity] Blood Pressure 130/75 138/85 H [Left Brachial artery] Blood Pressure [Supine] O2 Saturation 93 97 95 03/07/19 12:00 Temperature 37.0 C Heart Rate [ Activity] Heart Rate [ 77 Monitoring electrodes] Heart Rate [ Supine] Respiratory 23 Rate Blood Pressure [Activity] Blood Pressure 111/66 [Left Brachial artery] Blood Pressure [Supine] O2 Saturation 95 Oxygen O2 Source Nasal cannula I&O (Last 24 Hrs): Intake and Output Totals x24h 03/05/19 03/06/19 03/07/19 23:59 23:59 23:59 Intake Total 9773.333 5325.000 2100 Output Total 2875 4900 1650 Balance 6898.333 425.000 450 General: Other (Sleeping) HEENT: Mucous membr. moist/pink Neck: Other (Obese, and has a espinal, cannot assess for JVD) Neuro: Non Focal, Other (Currently sleeping) Cardiovascular: Other (Irreg) Respiratory: No respiratory distress, Other (Apnea was seen) Abdomen: Soft, Other (Obese with pannus) Extremities: No edema - Results Results: Laboratory Results WBC 3.8 x10^3/uL (4.8-10.8) L 03/07/19 05:25 RBC 3.74 10^6/uL (4.70-6.10) L 03/07/19 05:25 Hgb 10.8 g/dL (14.0-18.0) L 03/07/19 05:25 Hct 35.2 % (42.0-52.0) L 03/07/19 05:25 MCV 94.1 fL (80.0-94.0) H 03/07/19 05:25 MCH 28.9 pg (27.0-31.0) 03/07/19 05:25 MCHC 30.7 g/dL (32.0-36.0) L 03/07/19 05:25 RDW 13.9 % (12.0-15.0) 03/07/19 05:25 Plt Count 81 10^3/uL (130-450) L 03/07/19 05:25 MPV 10.1 fL (7.4-11.4) 03/07/19 05:25 Neut # (Auto) 2.3 10^3/uL (1.5-6.6) 03/07/19 05:25 Lymph # (Auto) 1.0 10^3/uL (1.5-3.5) L 03/07/19 05:25 [place] # (Auto) 0.3 10^3/uL (0.0-1.0) 03/07/19 05:25 Eos # (Auto) 0.1 10^3/uL (0.0-0.7) 03/07/19 05:25 Baso # (Auto) 0.0 10^3/uL (0.0-0.1) 03/07/19 05:25 Absolute Nucleated RBC 0.00 x10^3/uL 03/07/19 05:25 Nucleated RBC % 0.0 /100WBC 03/07/19 05:25 VBG pH 7.388 (7.31-7.41) 03/06/19 06:29 VBG pCO2 28.3 mmHg (41-51) L 03/04/19 01:25 VBG pO2 113.7 mmHg (25-47) H 03/04/19 01:25 VBG HCO3 19.4 mmol/L (23-28) L 03/04/19 01:25 VBG Total CO2 20.3 mmol/L (24-29) L 03/04/19 01:25 VBG O2 Saturation 98.2 % (60-80) H 03/04/19 01:25 VBG Base Excess -2.6 mmol/L (-2 - +2) L 03/04/19 01:25 Ionized Calcium 1.00 mmol/L (1.15-1.33) L 03/06/19 06:29 Sodium 141 mmol/L (135-145) 03/07/19 05:25 Potassium 4.0 mmol/L (3.5-5.0) 03/07/19 05:25 Chloride 108 mmol/L (101-111) 03/07/19 05:25 Carbon Dioxide 27 mmol/L (21-32) 03/07/19 05:25 Anion Gap 6.0 (6-13) 03/07/19 05:25 BUN 38 mg/dL (6-20) H 03/07/19 05:25 Creatinine 1.8 mg/dL (0.6-1.2) H 03/07/19 05:25 Estimated GFR (MDRD) 39 (>89) L 03/07/19 05:25 Glucose 296 mg/dL (70-100) H 03/07/19 05:25 POC Whole Bld Glucose 328 mg/dL (70 - 100) H 03/07/19 11:40 Glycated Hemoglobin 16.7 % (4.6-6.2) H 03/05/19 04:17 Estim Average Glucose 433 (70-100) H 03/05/19 04:17 Serum Osmolality 387 mOsm/kg (278-305) H 03/04/19 05:35 Lactic Acid 2.6 mmol/L (0.5-2.2) H 03/04/19 09:30 Calcium 8.0 mg/dL (8.5-10.3) L 03/07/19 05:25 Phosphorus 2.7 mg/dL (2.5-4.6) 03/07/19 05:25 Magnesium 2.2 mg/dL (1.7-2.8) 03/07/19 05:25 Total Bilirubin 2.0 mg/dL (0.2-1.0) H 03/04/19 01:25 AST 25 IU/L (10-42) 03/04/19 01:25 ALT 28 IU/L (10-60) 03/04/19 01:25 Alkaline Phosphatase 110 IU/L (42-121) 03/04/19 01:25 Troponin I High Sens 14.1 ng/L (2.3-19.7) 03/04/19 05:35 Total Protein 7.7 g/dL (6.7-8.2) 03/04/19 01:25 Albumin 2.6 g/dL (3.2-5.5) L 03/07/19 05:24 Globulin 4.0 g/dL (2.1-4.2) 03/04/19 01:25 Albumin/Globulin Ratio 0.9 (1.0-2.2) L 03/04/19 01:25 Lipase 56 U/L (22-51) H 03/04/19 01:25 Urine Color YELLOW 03/04/19 05:45 Urine Clarity CLEAR (CLEAR) 03/04/19 05:45 Urine pH 5.5 PH (5.0-7.5) 03/04/19 05:45 Ur Specific [place] 1.010 (1.002-1.030) 03/04/19 05:45 Urine Protein NEGATIVE mg/dL (NEGATIVE) 03/04/19 05:45 Urine Glucose (UA) >=1000 mg/dL (NEGATIVE) H 03/04/19 05:45 Urine Ketones 15 mg/dL (NEGATIVE) H 03/04/19 05:45 Urine Occult Blood NEGATIVE (NEGATIVE) 03/04/19 05:45 Urine Nitrite NEGATIVE (NEGATIVE) 03/04/19 05:45 Urine Bilirubin NEGATIVE (NEGATIVE) 03/04/19 05:45 Urine Urobilinogen 0.2 (NORMAL) E.U./dL (NORMAL) 03/04/19 05:45 Ur Leukocyte Esterase NEGATIVE (NEGATIVE) 03/04/19 05:45 Ur Microscopic Review NOT INDICATED 03/04/19 05:45 Urine Culture Comments NOT INDICATED 03/04/19 05:45 Nasal Screen MRSA (PCR) NEGATIVE (NEGATIVE) 03/04/19 05:30 Urine Opiates Screen NEGATIVE (NEGATIVE) 03/04/19 05:45 Ur Oxycodone Screen NEGATIVE (NEGATIVE) 03/04/19 05:45 Urine Methadone Screen NEGATIVE (NEGATIVE) 03/04/19 05:45 Ur Propoxyphene Screen NEGATIVE (NEGATIVE) 03/04/19 05:45 Ur Barbiturates Screen NEGATIVE (NEGATIVE) 03/04/19 05:45 Ur Tricyclics Screen NEGATIVE (NEGATIVE) 03/04/19 05:45 Ur Phencyclidine Scrn NEGATIVE (NEGATIVE) 03/04/19 05:45 Ur Amphetamine Screen NEGATIVE (NEGATIVE) 03/04/19 05:45 U Methamphetamines Scrn NEGATIVE (NEGATIVE) 03/04/19 05:45 U Benzodiazepines Scrn NEGATIVE (NEGATIVE) 03/04/19 05:45 Urine Cocaine Screen NEGATIVE (NEGATIVE) 03/04/19 05:45 U Cannabinoids Screen NEGATIVE (NEGATIVE) 03/04/19 05:45 Ethyl Alcohol < 5.0 mg/dL 03/04/19 01:25 Serum Ketones SMALL (NEGATIVE) H 03/04/19 01:25
[2019-03-07] MEDS ORDERED: SODIUM CHLORIDE 0.9% 500 ML ONE (13:14)
[2019-03-07 13:38] LABS: % IRON SATURATION 29 % (20-50); IRON 53 ug/dL (45-182); TOTAL IRON BINDING CAPACITY 183 ug/dL (250-450); TRANSFERRIN 131 mg/dL (180-329)
[2019-03-07 13:49] LABS: FOLATE 6.57 ng/mL (5.90 - >24.8)
[2019-03-07] MEDS ORDERED: SENNA 8.6 MG TABLET SCH (15:00)
[2019-03-07] MEDS: INSULIN GLARGINE 300 UNIT/3 ML PEN SUBQ SCH (20:57)
[2019-03-08] MEDS: SODIUM CHLORIDE FLUSH 0.9% 10 ML SYRINGE IVP SCH ×3 (01:19→17:14)
[2019-03-08] MEDS: SODIUM CHLORIDE FLUSH 0.9% 10 ML SYRINGE IVP PRN ×2 (01:19→01:20)
[2019-03-08] MEDS: COLCHICINE 0.6 MG TABLET PO SCH (08:29)
[2019-03-08] MEDS: LOSARTAN 50 MG TABLET PO SCH (08:30)
[2019-03-08] MEDS: LINEZOLID 600 MG TABLET PO SCH ×2 (08:30→20:41)
[2019-03-08] MEDS: hydroCHLOROthiazide 25 MG TABLET PO SCH (08:33)
[2019-03-08] MEDS: POLYETHYLENE GLYCOL 3350 17 GM PACKET PO SCH (08:33)
[2019-03-08] MEDS: SENNA 8.6 MG TABLET PO SCH (08:33)
[2019-03-08] MEDS: carvediloL 12.5 MG TABLET PO SCH ×2 (08:33→20:41)
[2019-03-08] MEDS: DOCUSATE SODIUM 250 MG CAPSULE PO SCH (08:33)
[2019-03-08] MEDS: INSULIN GLARGINE 300 UNIT/3 ML PEN SUBQ SCH ×2 (08:34→20:42)
[2019-03-08] MEDS: HEPARIN 5,000 UNIT/ML VIAL SUBQ SCH ×2 (08:35→20:07)
[2019-03-08] MEDS: INSULIN ASPART 300 UNIT/3 ML PEN SUBQ SCH ×7 (08:38→20:42)
--- NOTE | 2019-03-08 17:29 | PROVIDER PROGRESS NOTE ---
Assessment/Plan - Problem List (1) DM type 2 (diabetes mellitus, type 2) Assessment/Plan: HONK has resolved His glu checks are running 150-300 He is on Lantus plus ss Insulin an cc diet (2) Acute on chronic kidney failure Assessment/Plan: No morning labs today. Will recheck in am Continue hydration (3) Anemia Assessment/Plan: B12 and Folate levels are OK. Iron panel has low TIBC and low transferrin. He may have anemia of chronic disease (4) Furuncle of axillary fold Assessment/Plan: Today was first day of po antibiotic Only wound cx was (+), no positive blood cx (5) Fracture of metatarsal of left foot, closed Assessment/Plan: His pain is under good control (on tylenol, he sad) He is working with PT, has more endurance each day He does not wish to go to a SNF, he told me He understands he needs to walk with support (walker or cane). His latest plan (today) is to be DCh to his house or a friend's house. I have asked SW to see him and help arrange. Probable Dch tomorrow (6) Atrial flutter Assessment/Plan: He converted to NST The EKG showed T wave abn He needs outpatient eval for coronary ischemia (7) Abnormal EKG Assessment/Plan: As above (8) Hypertension Assessment/Plan: His BP meds are being resumed staggered (9) Morbid obesity with BMI of 40.0-44.9, adult Assessment/Plan: He was witnessed by me to have apnea during a nap yesterday (I told him that today). Overnight oximetry was done and he did desaturate to 74% at te lowest, on r.a. He will need a formal sleep study eval by his PCP after DCh, I told him (10) Hx of gout Assessment/Plan: Meds resumed (11) Hyperosmolar non-ketotic state in patient with type 2 diabetes mellitus Assessment/Plan: Resolved (12) Altered mental status Qualifiers: Altered mental status type: disorientation Qualified Code(s): R41.0 - Disorientation, unspecified Assessment/Plan: Lethargy resolved and he is alert and oriented - Current Meds Current Meds: Current Medications Generic Name Dose Route Start Last Admin Trade Name Freq PRN Reason Stop Dose Admin Acetaminophen 650 mg 03/04/19 03:41 03/05/19 08:02 Tylenol PO 650 mg Q4HR PRN Administration Pain 1 to 4 Carvedilol 25 mg 03/05/19 16:00 03/08/19 08:33 Coreg PO 25 mg BID [facility] Administration Colchicine 0.6 mg 03/08/19 09:00 03/08/19 08:29 Colcrys PO 0.6 mg DAILY ELENA Administration Docusate Sodium 250 - 500 mg 03/06/19 09:00 03/08/19 08:33 Colace 250mg Capsule PO Not Given DAILY ELENA Heparin Sodium (Beef Lung) 30 - 50 unit 03/08/19 00:29 03/08/19 01:24 IVP 50 unit PRN PRN Administration Central Line Protocol (<24 hr) Heparin Sodium (Porcine) 5,000 unit 03/04/19 09:00 03/08/19 08:35 SUBQ Not Given BID ELENA Hydrochlorothiazide 25 mg 03/08/19 09:00 03/08/19 08:33 Hydrodiuril PO 25 mg DAILY ELENA Administration Insulin Aspart 1 - 9 unit 03/06/19 12:00 03/08/19 17:13 Novolog SUBQ 5 unit 0800,1200,1700,2100 ELENA Administration Protocol Insulin Aspart 7 unit 03/07/19 17:00 03/08/19 17:13 Novolog SUBQ 7 unit TIDWM [facility] Administration Protocol Insulin Glargine 20 unit 03/07/19 21:00 03/08/19 08:34 Lantus Solostar SUBQ 20 unit BID ELENA Administration Linezolid 600 mg 03/08/19 09:00 03/08/19 08:30 Zyvox PO 600 mg BID ELENA Administration Losartan Potassium 100 mg 03/08/19 09:00 03/08/19 08:30 Cozaar PO 100 mg DAILY ELENA Administration Polyethylene Glycol 17 gm 03/06/19 09:00 03/08/19 08:33 Miralax PO Not Given DAILY ELENA Senna 8.6 - 17.2 mg 03/06/19 09:00 03/08/19 08:33 Senokot PO Not Given DAILY ELENA Sodium Chloride 10 ml 03/04/19 09:00 03/08/19 17:14 Normal Saline Flush 0.9% IVP 10 ml 0100,0900,1700 ELENA Administration Sodium Chloride 10 ml 03/04/19 03:41 03/08/19 01:19 Normal Saline Flush 0.9% IVP 10 ml PRN PRN Administration NEEDED PER PROVIDER ORDERS Sodium Chloride 20 ml 03/08/19 00:29 03/08/19 01:20 Normal Saline Flush 0.9% IVP 20 ml PRN PRN Administration After Blood Draw - Lab Result Fish Bone Diagrams: 03/07/19 05:25 03/07/19 05:25 - Additional Planning My Orders: My Active Orders 03/07/19 17:00 Insulin Aspart [NovoLOG] 7 unit SUBQ TIDWM 03/07/19 21:00 Insulin Glargine [Lantus Solostar] 20 unit SUBQ BID 03/08/19 00:29 Heparin Flush 30 - 50 unit IVP PRN PRN Sodium Chloride Flush 0.9% [Normal Saline Flush 0.9%] 20 ml IVP PRN PRN 03/08/19 09:00 Colchicine [Colcrys] 0.6 mg PO DAILY Linezolid [Zyvox] 600 mg PO BID Losartan [Cozaar] 100 mg PO DAILY hydroCHLOROthiazide [Hydrodiuril] 25 mg PO DAILY Subjective - Subjective Patient Reports: Feeling Better, Resting Comfortably Objective Vital Signs: Vital Signs - 24 hr 03/07/19 03/08/19 03/08/19 20:53 01:00 05:51 Temperature 36.7 C 36.7 C 36.6 C Heart Rate [ 70 Brachial] Heart Rate [ 75 74 Monitoring electrodes] Respiratory 19 20 18 Rate Blood Pressure 125/71 104/80 143/75 H [Left Brachial artery] O2 Saturation 100 99 98 03/08/19 03/08/19 03/08/19 07:37 13:02 15:36 Temperature 36.7 C 37.1 C 36.8 C Heart Rate [ 79 79 75 Brachial] Heart Rate [ Monitoring electrodes] Respiratory 20 18 18 Rate Blood Pressure 137/71 H 103/54 L 104/62 [Left Brachial artery] O2 Saturation 100 97 100 Oxygen O2 Source Room air I&O (Last 24 Hrs): Intake and Output Totals x24h 03/06/19 03/07/19 03/08/19 23:59 23:59 23:59 Intake Total 5325.000 5020 980 Output Total 4900 3245 1925 Balance 460.026 0528 -945 General: Alert HEENT: Mucous membr. moist/pink Neck: Supple Neuro: Non Focal Cardiovascular: Regular rate Respiratory: No respiratory distress, Breath sounds nml Abdomen: Soft, Other (Obese with pannus) Extremities: No edema, Other (L foot in boot) - Results Results: Laboratory Results WBC 3.8 x10^3/uL (4.8-10.8) L 03/07/19 05:25 RBC 3.74 10^6/uL (4.70-6.10) L 03/07/19 05:25 Hgb 10.8 g/dL (14.0-18.0) L 03/07/19 05:25 Hct 35.2 % (42.0-52.0) L 03/07/19 05:25 MCV 94.1 fL (80.0-94.0) H 03/07/19 05:25 MCH 28.9 pg (27.0-31.0) 03/07/19 05:25 MCHC 30.7 g/dL (32.0-36.0) L 03/07/19 05:25 RDW 13.9 % (12.0-15.0) 03/07/19 05:25 Plt Count 81 10^3/uL (130-450) L 03/07/19 05:25 MPV 10.1 fL (7.4-11.4) 03/07/19 05:25 Neut # (Auto) 2.3 10^3/uL (1.5-6.6) 03/07/19 05:25 Lymph # (Auto) 1.0 10^3/uL (1.5-3.5) L 03/07/19 05:25 [place] # (Auto) 0.3 10^3/uL (0.0-1.0) 03/07/19 05:25 Eos # (Auto) 0.1 10^3/uL (0.0-0.7) 03/07/19 05:25 Baso # (Auto) 0.0 10^3/uL (0.0-0.1) 03/07/19 05:25 Absolute Nucleated RBC 0.00 x10^3/uL 03/07/19 05:25 Nucleated RBC % 0.0 /100WBC 03/07/19 05:25 VBG pH 7.388 (7.31-7.41) 03/06/19 06:29 VBG pCO2 28.3 mmHg (41-51) L 03/04/19 01:25 VBG pO2 113.7 mmHg (25-47) H 03/04/19 01:25 VBG HCO3 19.4 mmol/L (23-28) L 03/04/19 01:25 VBG Total CO2 20.3 mmol/L (24-29) L 03/04/19 01:25 VBG O2 Saturation 98.2 % (60-80) H 03/04/19 01:25 VBG Base Excess -2.6 mmol/L (-2 - +2) L 03/04/19 01:25 Ionized Calcium 1.00 mmol/L (1.15-1.33) L 03/06/19 06:29 Sodium 141 mmol/L (135-145) 03/07/19 05:25 Potassium 4.0 mmol/L (3.5-5.0) 03/07/19 05:25 Chloride 108 mmol/L (101-111) 03/07/19 05:25 Carbon Dioxide 27 mmol/L (21-32) 03/07/19 05:25 Anion Gap 6.0 (6-13) 03/07/19 05:25 BUN 38 mg/dL (6-20) H 03/07/19 05:25 Creatinine 1.8 mg/dL (0.6-1.2) H 03/07/19 05:25 Estimated GFR (MDRD) 39 (>89) L 03/07/19 05:25 Glucose 296 mg/dL (70-100) H 03/07/19 05:25 POC Whole Bld Glucose 259 mg/dL (70 - 100) H 03/08/19 16:30 Glycated Hemoglobin 16.7 % (4.6-6.2) H 03/05/19 04:17 Estim Average Glucose 433 (70-100) H 03/05/19 04:17 Serum Osmolality 387 mOsm/kg (278-305) H 03/04/19 05:35 Lactic Acid 2.6 mmol/L (0.5-2.2) H 03/04/19 09:30 Calcium 8.0 mg/dL (8.5-10.3) L 03/07/19 05:25 Phosphorus 2.7 mg/dL (2.5-4.6) 03/07/19 05:25 Magnesium 2.2 mg/dL (1.7-2.8) 03/07/19 05:25 Iron 53 ug/dL (45-182) 03/07/19 12:58 TIBC 183 ug/dL (250-450) L 03/07/19 12:58 % Saturation 29 % (20-50) 03/07/19 12:58 Transferrin 131 mg/dL (180-329) L 03/07/19 12:58 Total Bilirubin 2.0 mg/dL (0.2-1.0) H 03/04/19 01:25 AST 25 IU/L (10-42) 03/04/19 01:25 ALT 28 IU/L (10-60) 03/04/19 01:25 Alkaline Phosphatase 110 IU/L (42-121) 03/04/19 01:25 Troponin I High Sens 7.7 ng/L (2.3-19.7) 03/07/19 12:36 Total Protein 7.7 g/dL (6.7-8.2) 03/04/19 01:25 Albumin 2.6 g/dL (3.2-5.5) L 03/07/19 05:24 Globulin 4.0 g/dL (2.1-4.2) 03/04/19 01:25 Albumin/Globulin Ratio 0.9 (1.0-2.2) L 03/04/19 01:25 Lipase 56 U/L (22-51) H 03/04/19 01:25 Vitamin B12 652 pg/mL (180-914) 03/07/19 12:58 Folate 6.57 ng/mL (5.90 - >24.8) 03/07/19 12:58 TSH 1.45 uIU/mL (0.34-5.60) 03/07/19 05:24 Urine Color YELLOW 03/04/19 05:45 Urine Clarity CLEAR (CLEAR) 03/04/19 05:45 Urine pH 5.5 PH (5.0-7.5) 03/04/19 05:45 Ur Specific [place] 1.010 (1.002-1.030) 03/04/19 05:45 Urine Protein NEGATIVE mg/dL (NEGATIVE) 03/04/19 05:45 Urine Glucose (UA) >=1000 mg/dL (NEGATIVE) H 03/04/19 05:45 Urine Ketones 15 mg/dL (NEGATIVE) H 03/04/19 05:45 Urine Occult Blood NEGATIVE (NEGATIVE) 03/04/19 05:45 Urine Nitrite NEGATIVE (NEGATIVE) 03/04/19 05:45 Urine Bilirubin NEGATIVE (NEGATIVE) 03/04/19 05:45 Urine Urobilinogen 0.2 (NORMAL) E.U./dL (NORMAL) 03/04/19 05:45 Ur Leukocyte Esterase NEGATIVE (NEGATIVE) 03/04/19 05:45 Ur Microscopic Review NOT INDICATED 03/04/19 05:45 Urine Culture Comments NOT INDICATED 03/04/19 05:45 Nasal Screen MRSA (PCR) NEGATIVE (NEGATIVE) 03/04/19 05:30 Urine Opiates Screen NEGATIVE (NEGATIVE) 03/04/19 05:45 Ur Oxycodone Screen NEGATIVE (NEGATIVE) 03/04/19 05:45 Urine Methadone Screen NEGATIVE (NEGATIVE) 03/04/19 05:45 Ur Propoxyphene Screen NEGATIVE (NEGATIVE) 03/04/19 05:45 Ur Barbiturates Screen NEGATIVE (NEGATIVE) 03/04/19 05:45 Ur Tricyclics Screen NEGATIVE (NEGATIVE) 03/04/19 05:45 Ur Phencyclidine Scrn NEGATIVE (NEGATIVE) 03/04/19 05:45 Ur Amphetamine Screen NEGATIVE (NEGATIVE) 03/04/19 05:45 U Methamphetamines Scrn NEGATIVE (NEGATIVE) 03/04/19 05:45 U Benzodiazepines Scrn NEGATIVE (NEGATIVE) 03/04/19 05:45 Urine Cocaine Screen NEGATIVE (NEGATIVE) 03/04/19 05:45 U Cannabinoids Screen NEGATIVE (NEGATIVE) 03/04/19 05:45 Ethyl Alcohol < 5.0 mg/dL 03/04/19 01:25 Serum Ketones SMALL (NEGATIVE) H 03/04/19 01:25
[2019-03-09] MEDS: SODIUM CHLORIDE FLUSH 0.9% 10 ML SYRINGE IVP SCH ×2 (01:03→08:20)
[2019-03-09] MEDS: SODIUM CHLORIDE FLUSH 0.9% 10 ML SYRINGE IVP PRN ×2 (05:57)
[2019-03-09 06:15] LABS: BASOPHILS % (AUTO) 0.3 %; EOSINOPHILS # (AUTO) 0.1 10^3/uL (0.0-0.7); EOSINOPHILS % (AUTO) 1.9 %; HGB - HEMOGLOBIN 10.9 g/dL (14.0-18.0); LYMPHOCYTES % (AUTO) 33.1 %; MEAN CORPUSCULAR HEMOGLOBIN 29.9 pg (27.0-31.0); MEAN CORPUSCULAR HGB CONC 31.4 g/dL (32.0-36.0); MEAN CORPUSCULAR VOLUME 95.1 fL (80.0-94.0); MEAN PLATELET VOLUME 9.4 fL (7.4-11.4); MONOCYTES # (AUTO) 0.3 10^3/uL (0.0-1.0); MONOCYTES % (AUTO) 8.1 %; NEUTROPHILS # (AUTO) 1.6 10^3/uL (1.5-6.6); PLT - PLATELET COUNT 100 10^3/uL (130-450); RED BLOOD COUNT 3.65 10^6/uL (4.70-6.10); RED CELL DISTRIBUTION WIDTH 13.9 % (12.0-15.0); WHITE BLOOD COUNT 3.1 x10^3/uL (4.8-10.8)
[2019-03-09 06:24] LABS: CALCIUM 8.4 mg/dL (8.5-10.3); CREATININE 1.5 mg/dL (0.6-1.2)
[2019-03-09] MEDS: carvediloL 12.5 MG TABLET PO SCH (08:19)
[2019-03-09] MEDS: COLCHICINE 0.6 MG TABLET PO SCH (08:19)
[2019-03-09] MEDS: LOSARTAN 50 MG TABLET PO SCH (08:19)
[2019-03-09] MEDS: hydroCHLOROthiazide 25 MG TABLET PO SCH (08:19)
[2019-03-09] MEDS: LINEZOLID 600 MG TABLET PO SCH (08:20)
[2019-03-09] MEDS: POLYETHYLENE GLYCOL 3350 17 GM PACKET PO SCH (08:20)
[2019-03-09] MEDS: DOCUSATE SODIUM 250 MG CAPSULE PO SCH (08:20)
[2019-03-09] MEDS: SENNA 8.6 MG TABLET PO SCH (08:20)
[2019-03-09] MEDS: HEPARIN 5,000 UNIT/ML VIAL SUBQ SCH (08:20)
[2019-03-09] MEDS: INSULIN ASPART 300 UNIT/3 ML PEN SUBQ SCH ×4 (08:26→12:18)
[2019-03-09] MEDS: INSULIN GLARGINE 300 UNIT/3 ML PEN SUBQ SCH (08:27)
--- NOTE | 2019-03-09 08:55 | Discharge Plan ---
Discharge Plan Problem Reviewed?: Yes Disposition: Home, Self Care Condition: Stable Prescriptions: Linezolid [Zyvox] 600 mg PO BID #10 tablet Diet: Diabetic Activity Restrictions: Activity as Tolerated Shower Restrictions: No Driving Restrictions: No Assistance Devices: Walker Weight Bearing: Full Weight Instruction Topics: Walker Use, Walker In Out Car Dc, ED Boot Aircast Walker Health Concerns: Admitted confused and dehydrated from elevated glucose. Foot was fractured after the fall. Infection in armpit was noted. Plan of Treatment: Finish a course of antibiotics. A prescription was electronically sent to your pharmacy. While on antibiotics, eat yogurt or probiotics (to prevent diarrhea). Resume your Diabetic management and your other pre-hospital medications, except you don't need the Nifedipine for high BP or Lasix for edema, because your BP was low and you were dehydrated. These may need to be resumed in the future. See your doctor in follow-up. Have a follow-up appointment in the [facility] clinic in 1-2 weeks. Call for appointment: . Care Goals: Healing of fracture and infection and stabilization of diabetes. Assessment: The patient is agreeable with the plan. Additional Instructions or Follow Up instructions: If you have new or worsening symptoms[place] or come to the Emergency Department. No Smoking: If you smoke, Please STOP! Call for help.
--- NOTE | 2019-03-09 10:30 | Discharge Plan ---
Discharge Plan Problem Reviewed?: Yes Disposition: Home, Self Care Condition: Stable Prescriptions: Insulin Aspart [NovoLOG] 1 - 9 unit SUBQ 0800,1200,1700,2100 #2 pen Insulin Aspart [NovoLOG] 7 unit SUBQ TIDWM #2 pen Insulin Glargine [Lantus Solostar] 20 unit SUBQ BID #2 pen Linezolid [Zyvox] 600 mg PO BID #10 tablet Diet: Diabetic Activity Restrictions: Activity as Tolerated Shower Restrictions: No Driving Restrictions: No Assistance Devices: Walker Weight Bearing: Full Weight Instruction Topics: Walker Use, Walker In Out Car Dc, ED Boot Aircast Walker Health Concerns: Admitted confused and dehydrated from severely elevated glucose. Foot was fractured after the fall. Infection in armpit was noted. You were in the Intensive Care Unit in serious condition from all the above. Your Diabetic control was very poor, and you are on new Diabetic medications now. Plan of Treatment: Finish a course of antibiotics. A prescription was electronically sent to your pharmacy. While on antibiotics, eat yogurt or probiotics (to prevent diarrhea). You will now be on new Insulin, and new prescriptions were electronically sent. Resume your other pre-hospital medications, except you don't need the Nifedipine for high BP or Lasix for edema, because your BP was low and you were dehydrated. These may need to be resumed in the future. Have a follow-up appointment in the [facility] in 1-2 weeks. Call for appointment: . You may come to the Diabetic clinic here as well, for management while you are on [facility]. See your doctor in follow-up, when you return to [place], for a hospital f ollow-up and for refills of the new Insulins. Care Goals: Healing of fracture and infection and stabilization of diabetes. Assessment: The patient is agreeable with the plan. Additional Instructions or Follow Up instructions: If you have new or worsening symptoms, go to Urgent Care on the [place], or come to the Emergency Department. Follow-Up Care: [facility] - Diabetes Ed No Smoking: If you smoke, Please STOP! Call for help.
--- NOTE | 2019-03-09 10:38 | DISCHARGE SUMMARY ---
Discharge Summary Admit Date: 03/04/19 Discharge Date: 03/09/19 Discharging Provider: Dr Patt Mandujano Primary Care Provider: Dr Pablo Wang, [facility], [place], [place] Code Status: Attempt Resuscitation Condition at Discharge: Stable Discharge Disposition: 01 Home, Self Care - DIAGNOSES Admission Diagnoses: (1) Uncontrolled type 2 DM with hyperosmolar nonketotic hyperglycemia (2) Altered mental status (3) Increased anion gap metabolic acidosis (4) Acute kidney injury superimposed on chronic kidney disease (5) Fracture of metatarsal of left foot, closed (6) Atrial flutter (7) Hypernatremia (8) Lupus (9) Hypertension (10) Gout Discharge Diagnoses with Status of Each Condition: See below - HPI History of Present Illness: From the admission H&P of Dr Kenny Ly: This is a 58-year-old male with a past medical history significant for type 2 diabetes, chronic kidney disease, lupus on mycophenolate, hypertension, gout who presents today after having a ground-level fall at home. He states he fell the evening of . He reports his left knee gave out and that he injured his left foot. His foot became painful and quite swollen. He had difficult time getting back to bed. He was eventually able to call EMS last night and when they arrived they noticed his left foot was swollen and he was tachycardic in the 150s. The patient states his blood sugar has been elevated these past few days and that the moderate has been reading "high." He states he has been taking his insulin at times but not consistently. He is not able to recall his dose and whether it is short or long-acting insulin. He is not sure why he has been able to take it consistently. He is complaining of increased urination and feeling very dehydrated. He is thirsty at this time. He reports no chest pain, dyspnea, fevers, chills. He reports no prior history of DKA. He is currently visiting from [facility] and has been here since beginning of the month by himself. He states his kidney function at baseline is functioning at approximately 30%. He has have a history of lupus for which he takes mycophenolate. He denies a history of cardiac problems including heart failure and arrhythmias. In the emergency department, he is found to be afebrile, tachycardic in the 150s, normotensive, tachypneic in the low 20s, saturating well on room air. His labs revealed a white count of 12.8 and hemoglobin of 17.4. His serum chemistry revealed a sodium of 137, potassium of 5.1, anion gap of 29, bicarbonate of 23. His BUN is elevated at 96 and Creatinine was 2.7. His glucose was 1107 and had an elevated lactic acid at 3.3. Serum ketones were small. VBG obtained showed a pH 7.45 and a PCO2 of 28.3. His chest x-ray was unremarkable. The x-ray of his left foot reveal a nondisplaced transverse fracture through the base of the third metatarsal. Given these findings, Hospitalist team was consulted for admission. - HOSPITAL COURSE Hospital Course: (1) Hyperosmolar non-ketotic state in patient with type 2 diabetes mellitus He was admitted to the ICU, on high iv saline fluid rate, and insulin drip protocol. His K, Phos, Mg and were supplemented as needed. His obtundation was slow to improve; he was disoriented and forgetful until his second to last day here. (2) Diabetes Mellitus, Type 2, uncontrolled His A1c at admission was 12.7. His home Insulin schedule was quite odd with tid Lantus and he admitted he had old Insulin bottles and was occasionally non- compliant with taking his Insulin. He was seen by the diabetic nurse educator and together with the Yoga Instructor, a new schedule and new Insulin type was used and he was discharged with new prescriptions on this schedule. (3) Acute kidney injury superimposed on chronic kidney disease At admission, his BUN/creatinine were 96/3.7. His previous labs from 11/2018 show a creat of 1.45 so he already had CKD. Creat slowly responded with hydration. At discharge his BUN/ creat was 23/1.5. (4) Furuncle of axillary fold There was a large furuncle with surrounding cellulitis. He was treated with iv Vanco and was transitioned to take po for more days, at discharge. (5) Hypertension For most of this hospitalization, his usual medications were being held since his blood pressure was low. (6) Fracture of metatarsal of left foot, closed A nondisplaced fracture of third metatarsal bone, left foot was diagnosed and he was seen by Ortho who advised a weight-bearing boot. He participated with PT and needed a walker at discharge, and only Tylenol for pain control. 7) Anemia At admission, his Hgb was 17.4, consistent with dehydration. The Hgb was monitored daily and went to 13.4, after 13 L of saline for rehydration. Followi ng that, it continued to decline to 11.8>> 10.8>> 10.9 at discharge. His b12 and folate levels were normal, but Iron stores were borderline: Iron 53, and % sat 29 were normal but TIBC 183 and Transferrin 131 were low. 8) Paroxysmal Aflutter He presented in ?new onset Aflutter with RVR. His thyroid labs and troponins were checked and were normal. A resting Echo showed preserved LV function. On the third day of hospitalization, he converted to normal sinus rhythm, an EKG confirmed this. He needs a stress test, when he is back in [place], with his usual provider. 9) Abn EKG His admission EKG was remarkable with diffusely inverted T waves. As above, he needs a stress test, when he is back in [place], with his usual provider. 10) Morbid obesity, BMI 40-49 The recordist reviewed a better diet. 11) Hx gout No exacerbation while here. 12) Sleep apnea This Hospitalist witnessed apneic spells when he was napping one afternoon, therefore an overnight oximetry test was ordered and showed several desaturations to as low as 74% on room air, for up to 4 min. He was told he need s a sleep study and formal evaluation for sleep apnea, when he is back in [place], which he said would be in several weeks. - ALLERGIES Allergies/Adverse Reactions: Allergies Allergy/AdvReac Type Severity Reaction Status Date / Time No Known Drug Allergies Allergy Verified 03/04/19 01:22 - MEDICATIONS Home Medications: Ambulatory Orders Medication Instructions Recorded Confirmed Colchicine 0.6 mg PO DAILY 03/04/19 03/04/19 Febuxostat 80 mg PO DAILY 03/04/19 03/04/19 Losartan/Hydrochlorothiazide 1 tab PO DAILY 03/04/19 03/04/19 [Losartan-Hctz 100-25 mg Tab] Mycophenolate Mofetil 1,000 mg PO BID 03/04/19 03/04/19 carvediloL [Carvedilol] 25 mg PO BID 03/04/19 03/04/19 Insulin Aspart [NovoLOG] 1 - 9 unit SUBQ 03/09/19 0800,1200,1700,2100 #2 pen Insulin Aspart [NovoLOG] 7 unit SUBQ TIDWM #2 pen 03/09/19 Insulin Glargine [Lantus Solostar] 20 unit SUBQ BID #2 pen 03/09/19 Linezolid [Zyvox] 600 mg PO BID #10 tablet 03/09/19 - PHYSICAL EXAM AT DISCHARGE General Appearance: positive: No acute distress, Alert, Other (Male pattern baldness) Eyes Bilateral: positive: Normal inspection, PERRL, EOMI ENT: positive: ENT inspection nml Neck: positive: Other (Obese) Respiratory: positive: No respiratory distress, Breath sounds nml Cardiovascular: positive: Regular rate & rhythm Abdomen: positive: Non-tender, Other (Obese with a pannus) Skin: positive: Color nml Neurologic/Psychiatric: positive: Oriented x3, Other (Grossly normal) - LABS Result Diagrams: 03/09/19 06:05 03/09/19 06:05 - DIAGNOSTIC IMAGING Diagnostic Imaging Results: Final report reviewed - FOLLOW UP Follow Up: See PCP soon, when returns to [place]. If any worsening symptoms while here, come to Urgent Care or the ED. - TIME SPENT Time Spent in Discharge (Minutes): 60
[2019-03-09 12:22] VITALS: BP 129/72
[2019-03-09 16:34] LABS: HB2 TOTAL 10.9 g/dL; HEMOGLOBIN A1C 1.76 g/dL; HEMOGLOBIN A1C % 16.9 % (4.6-6.2)
== END 2019-03-09 14:03 | disposition home or self-care (01) | DRG 682 ==
LOC: ED 00:48 → ICU 03:41 → MS2 03-07 14:31
PROVIDERS: ADMIT Internal Medicine; ATTEND Internal Medicine
PROC: 02HV33Z Insertion of Infusion Device into Superior Vena Cava, Percutaneous Approach (ICD-10-PCS; principal; 2019-03-04)
DX: N17.9 Acute kidney failure, unspecified (principal); E11.00 Type 2 diabetes mellitus with hyperosmolarity without nonketotic hyperglycemic-hyperosmolar coma (NKHHC); L03.119 Cellulitis of unspecified part of limb; E87.2 Acidosis; Z68.41 Body mass index [BMI] 40.0-44.9, adult; I48.92 Unspecified atrial flutter; E87.0 Hyperosmolality and hypernatremia; I48.91 Unspecified atrial fibrillation; G47.33 Obstructive sleep apnea (adult) (pediatric); I12.9 Hypertensive chronic kidney disease with stage 1 through stage 4 chronic kidney disease, or unspecified chronic kidney disease; E11.22 Type 2 diabetes mellitus with diabetic chronic kidney disease; N18.3 Chronic kidney disease, stage 3 (moderate); D63.1 Anemia in chronic kidney disease; M32.9 Systemic lupus erythematosus, unspecified; E86.0 Dehydration; E66.01 Morbid (severe) obesity due to excess calories; L02.429 Furuncle of limb, unspecified; S92.335A Nondisplaced fracture of third metatarsal bone, left foot, initial encounter for closed fracture; T38.3X6A Underdosing of insulin and oral hypoglycemic [antidiabetic] drugs, initial encounter; M10.9 Gout, unspecified; R94.31 Abnormal electrocardiogram [ECG] [EKG]; W18.30XA Fall on same level, unspecified, initial encounter; Z91.138 Patient's unintentional underdosing of medication regimen for other reason; Y92.59 Other trade areas as the place of occurrence of the external cause; Z79.4 Long term (current) use of insulin
CPT/HCPCS: 29515; 36415; 71045; 73630; 76882; 80048; 80053; 80306; 80320; 81003; 82009; 82040; 82330; 82607; 82746; 82803; 82947; 83036; 83540; 83605; 83690; 83735; 83930; 84100; 84132; 84443; 84466; 84484; 85025; 87040; 87070; 87150; 87181; 87205; 93005; 93306; 93970; 94761; 96374; 97116; 97161; 97530; 99285; 99291; A9270; J1815; J2020; 81001; 87086